=== PATIENT | male | born 1975 | race Caucasian/White ===

== ENCOUNTER → 2020-10-21 11:09 | Outpatient (BNVA) | payer OTHER, SELFPAY | PROVIDERS: Family Provider Family Medicine; PCP Family Medicine; Visit Provider Emergency Medicine | DX: Z20.822 Contact with and (suspected) exposure to COVID-19 (principal); R11.0 Nausea; R11.2 Nausea with vomiting, unspecified; E86.0 Dehydration | CPT/HCPCS: 87635 ==

== ENCOUNTER 2020-10-23 11:38 | Inpatient (IN) | payer OTHER, SELFPAY ==
[2020-10-23] VITALS (26 sets, daily range): BP systolic 124–145; BP diastolic 63–108; PULSE 65–80; RESP 16–29; TEMP 36.6–37.5; O2SAT 89–97
--- NOTE | 2020-10-23 13:54 | XR_ITS ---
WS: [id number] Portable AP upright chest, 10/23/2020 Clinical Data: sob Comparison: None. Findings: Patchy bilateral pulmonary opacities are consistent with pneumonia. The patient has a poor inspiratory effort. The heart is normal. No pneumothorax is seen. XR/XR chest 1V portable [id number] Impression: Patchy bilateral pulmonary opacities consistent with pneumonia.
--- NOTE | 2020-10-23 13:54 | ECG_ITS ---
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 Measurements Intervals [place] Rate: 77 P: 25 MS: 133 QRS: 105 QRSD: 100 T: 28 QT: 350 QTc: 397 Interpretive Statements SINUS RHYTHM POSSIBLE RIGHT VENTRICULAR HYPERTROPHY [SOME/ALL OF: PROMINENT R IN V1, LATE TRANSITION, RAD, HELEN, SSS] No previous ECG available for comparison Electronically Signed On 10-24-2020 20:34:06 CDT by Elba Frank M.D. [email or web address]
--- NOTE | 2020-10-23 13:55 | W.ED.COVID ---
Documented by User: SHEILA Dick 10/24/20 07:23 HPI - COVID General: Chief Complaint: COVID symptoms Stated Complaint: LOW O2 Time Seen by Provider: 10/23/20 13:47 History of Present Illness: HPI Narrative: Patient is a 45-year-old male comes to the ED with Covid symptoms. Patient has been having symptoms since October 11. He also had exposure to known Covid positive patient at that time. Patient is a fatigue, body aches, nausea and vomiting. Symptoms have improved and he went into the walk-in clinic this past Thursday and was given some IV fluids and Zofran and is fatigue, nausea and emesis improved. He was discharged home with a prescription for Zofran and says that has been helping his nausea a lot. He is also been taking Tylenol and ibuprofen to help with the body aches. Patient's current symptoms are productive cough with yellow sputum and shortness of breath. He says his shortness of breath occurs at rest and upon exertion. Patient was tested for COVID-19 on October 21 and results are still pending. Patient has not received the COVID-19 vaccinations. COVID 19 common symptoms: positive productive cough, dyspnea, fatigue and body aches; negative fever(s), chills, non-productive cough, headache(s), throat pain, nasal congestion, nausea, vomiting or diarrhea COVID 19 other sytmptoms: negative chest pain COVID Results: SARS-CoV-2 Antigen (Rapid) Positive (Negative) H 10/23/20 14:25 10/23/20 SARS-CoV-2 RNA (RT-PCR) Detected (NOT DETECTED) A 10/21/20 11:09 10/21/20 Review of Systems Const: Reports: body aches and fatigue; Denies: fever(s) or chills Eyes: Denies: change in vision or eye discomfort ENMT: Denies: throat pain, odynophagia, nasal discharge or nasal congestion Card: Denies: chest pain, palpitations, edema, swelling of feet/ankles, dyspnea on exertion or orthopnea Resp: Reports: dyspnea and productive cough; Denies: non-productive cough GI: Denies: abdominal pain, nausea, vomiting, diarrhea, constipation or hematochezia : Denies: flank pain, difficulty urinating, dysuria or hematuria Musc: Denies: neck pain, back pain or extremity swelling Skin/Breast: Denies: rash or new lesions Neuro: Denies: headache(s), numbness in extremities or weakness in extremities PFSH ED PFSH: Medical History No pertinent past medical history Surgical History No pertinent past surgical history Family History Mother CAD (coronary artery disease) Social History Smoking and tobacco status: never smoked Alcohol intake: never Substance/Drug Use: never Physical Exam Const: COMMON NORMALS: patient oriented x3, healthy appearing and alert GENERAL APPEARANCE: cooperative and comfortable HENMT: COMMON NORMALS: normocephalic HEAD & SCALP: normocephalic MOUTH: Normal oral and palatal mucosa present THROAT: posterior oropharynx normal and uvula midline Eye: COMMON NORMALS: Equal, round and reactive pupils present PUPIL: Yes Equal, round and reactive pupils present Neck/C-Spine: COMMON NORMALS: supple GENERAL: Yes normal visual inspection Resp: COMMON NORMALS: normal respiratory effort, No retractions and No use of accessory muscles EFFORT & INSPECTION: Yes able to speak in complete sentences, No tachypneic, No respiratory distress, No labored and Yes Actively coughing dry AUSCULTATION: wheezes expiratory wheezes and right lower and diminished lung sounds bilateral in the lower lung bernal Cardio: COMMON NORMALS: regular rate, regular rhythm, S1 normal heart sound present, S2 normal heart sound present, No gallops present (Cardio), No clicks present (Cardio), No murmurs present (Cardio) and Peripheral pulses 2+ throughout RATE: regular rate RHYTHM: regular rhythm HEART SOUNDS: S1 normal heart sound present and S2 normal heart sound present PERIPHERAL PULSES: Peripheral pulses 2+ throughout GI: COMMON NORMALS: Normal to inspection, nondistended, normoactive bowel sounds present, Soft to palpation, non-tender and no masses PALPATION: Yes Soft to palpation : COMMON NORMALS: Yes no CVA tenderness BLADDER/KIDNEY EXAM: Yes no CVA tenderness Back/Pelvis: COMMON NORMALS: no CVA tenderness Extremity: COMMON NORMALS: normal to inspection Neuro: COMMON NORMALS: patient oriented x3 and moves all extremities SENSORIUM/ORIENTATION: Yes alert Skin: GENERAL SKIN EXAM: dry skin Course Vital Signs: Vital signs: Vital Signs Temperature 98.9 F 10/24/20 20:00 Pulse Rate 51 L 10/25/20 06:00 Respiratory Rate 20 H 10/25/20 03:43 Blood Pressure 107/62 10/25/20 03:43 Pulse Oximetry 94 10/25/20 03:43 MDM - COVID MDM Narrative: Medical decision making narrative: Patient is a 45-year-old male who comes to the ED with shortness of breath and cough. Patient has no lung disease history. patient was exposed to somebody with COVID-19 and his symptoms started back on October 11. He is having worsening cough and shortness of breath over the past couple days. Here in the ED patient appears nontoxic and in no acute distress. He is actively coughing throughout exam. Patient's right lung has some wheezing and decreased breath sounds. The rest of exam is benign. Patient was at 91% O2 saturation on room air. He was then put on 4 L of oxygen and patient ran around 92 to 94% O2 saturation. The rest of vitals were in normal limits. Covid rapid test positive. Patient had a pending PCR test that just came back positive as well today. Patient had lymphocytopenia but rest of CBC and CMP were unremarkable. Arterial blood gas done and pO2 was at 58.7 and pH was 7.43. Lactic acid 1.3. CRP 97.8 and procal 0.24. Chest x-ray shows patchy bilateral pulmonary opacities consistent with pneumonia. Due to patient requiring 4 L of oxygen currently, ABG results chest x-ray I spoke with Dr. Carpenter about patient case and needing admission. Dr. Carpenter then took over patient case due to acuity and pt needing admission. Lab Data: Labs: Lab Results 10/23/20 10/23/20 10/23/20 Range/Units 14:20 14:25 14:30 WBC 2.5 L (4.0-10.0) 10^3/ uL RBC 5.32 H (4.1-5.3) 10^6/u L Hgb 14.2 (11.7-16.6) g/dL Hct 44.8 (42.0-52.0) % MCV 84.2 (80-94) fL MCH 26.7 L (28.0-34.0) pg MCHC 31.7 (30.0-36.0) g/dL RDW 14.0 (12.1-15.1) % Plt Count 128 L (130-400) 10^3/c mm MPV 9.4 (7.4-10.4) fL Neut % (Auto) 72.0 % Lymph % (Auto) 22.8 % Crowley % (Auto) 4.4 % Eos % (Auto) 0.0 % Baso % (Auto) 0.4 % Neut # (Auto) 1.80 (1.8-7.7) 10^3/u L Lymph # (Auto) 0.6 L (0.8-4.8) 10^3/u L Crowley # (Auto) 0.1 L (0.2-0.9) 10^3/u L Eos # (Auto) 0.0 (0.0-0.8) 10^3/u L Baso # (Auto) 0.0 (0.0-0.1) 10^3/u L Nucleated RBC % (a uto) 0 % Nucleated RBCs # 0.0 /100WBC D-Dimer (0-0.59) ug/mIFE U Specimen Type Arterial ABG pH 7.43 (7.35-7.45) ABG pCO2 41.3 (35-45) mmHg ABG pO2 58.7 L (80.0-100.0) mmH g ABG HCO3 27.2 H (22-26) mmol/L ABG O2 Saturation 92.9 ABG Base Excess 2.5 H (-2.0-2.0) mmol/ L Blake Test Pos A-a O2 Gradient 5.2 (5-10) mmHg Hematocrit 45.0 (42-52) % Hgb O2 Saturation 92.0 L (95-100) % Carboxyhemoglobin 0.7 (0.4-20.1) %THgb Methemoglobin 0.3 L (0.4-1.5) % Total Hemoglobin 14.7 (14-18) g/dL Sodium 138.0 (131-143) mmol/L Potassium 4.1 (3.5-5.0) mmol/L Glucose 99.0 (70-115) mg/dL Ionized Calcium 1.1 (1.1-1.4) mmol/L O2 Delivery Device Training Program Assistant ID Cass Chloride (98-107) mmol/L Carbon Dioxide (22-29) mmol/L Anion Gap (5-19) BUN (6-20) mg/dL Creatinine (0.7-1.2) mg/dL GFR Calculation (90-130) mL/min Calculated Osmolal ity (285-295) mOsm/k g Lactic Acid (0.5-2.2) mmol/L Calcium (8.5-10.5) mg/dL Total Bilirubin (0.15-1.2) mg/dL AST (0-40) U/L ALT (0-41) U/L Alkaline Phosphata se (40-130) IU/L C-Reactive Protein (0.0-4.9) mg/L Total Protein (6.6-8.7) g/dL Albumin (3.5-5.2) g/dL Globulin (1.3-4.6) g/dL Procalcitonin (0-0.5) ng/mL SARS-CoV-2 Ag (Rap id) Positive H (Negative) 10/23/20 10/23/20 10/23/20 Range/Units 14:30 14:30 14:30 WBC (4.0-10.0) 10^3/ uL RBC (4.1-5.3) 10^6/u L Hgb (11.7-16.6) g/dL Hct (42.0-52.0) % MCV (80-94) fL MCH (28.0-34.0) pg MCHC (30.0-36.0) g/dL RDW (12.1-15.1) % Plt Count (130-400) 10^3/c mm MPV (7.4-10.4) fL Neut % (Auto) % Lymph % (Auto) % Crowley % (Auto) % Eos % (Auto) % Baso % (Auto) % Neut # (Auto) (1.8-7.7) 10^3/u L Lymph # (Auto) (0.8-4.8) 10^3/u L Crowley # (Auto) (0.2-0.9) 10^3/u L Eos # (Auto) (0.0-0.8) 10^3/u L Baso # (Auto) (0.0-0.1) 10^3/u L Nucleated RBC % (a uto) % Nucleated RBCs # /100WBC D-Dimer 0.98 H (0-0.59) ug/mIFE U Specimen Type ABG pH (7.35-7.45) ABG pCO2 (35-45) mmHg ABG pO2 (80.0-100.0) mmH g ABG HCO3 (22-26) mmol/L ABG O2 Saturation ABG Base Excess (-2.0-2.0) mmol/ L Blake Test A-a O2 Gradient (5-10) mmHg Hematocrit (42-52) % Hgb O2 Saturation (95-100) % Carboxyhemoglobin (0.4-20.1) %THgb Methemoglobin (0.4-1.5) % Total Hemoglobin (14-18) g/dL Sodium 135 L (131-143) mmol/L Potassium 4.2 (3.5-5.0) mmol/L Glucose 94 (70-115) mg/dL Ionized Calcium (1.1-1.4) mmol/L O2 Delivery Device Training Program Assistant ID Chloride 97 L (98-107) mmol/L Carbon Dioxide 28 (22-29) mmol/L Anion Gap 14.2 (5-19) BUN 12 (6-20) mg/dL Creatinine 0.9 (0.7-1.2) mg/dL GFR Calculation 92.1 (90-130) mL/min Calculated Osmolal ity 280 L (285-295) mOsm/k g Lactic Acid (0.5-2.2) mmol/L Calcium 7.7 L (8.5-10.5) mg/dL Total Bilirubin 0.5 (0.15-1.2) mg/dL AST 163 H (0-40) U/L ALT 180 H (0-41) U/L Alkaline Phosphata se 185 H (40-130) IU/L C-Reactive Protein 97.8 H (0.0-4.9) mg/L Total Protein 6.0 L (6.6-8.7) g/dL Albumin 4.0 (3.5-5.2) g/dL Globulin 2.0 (1.3-4.6) g/dL Procalcitonin 0.24 (0-0.5) ng/mL SARS-CoV-2 Ag (Rap id) (Negative) 10/23/20 Range/Units 14:30 WBC (4.0-10.0) 10^3/ uL RBC (4.1-5.3) 10^6/u L Hgb (11.7-16.6) g/dL Hct (42.0-52.0) % MCV (80-94) fL MCH (28.0-34.0) pg MCHC (30.0-36.0) g/dL RDW (12.1-15.1) % Plt Count (130-400) 10^3/c mm MPV (7.4-10.4) fL Neut % (Auto) % Lymph % (Auto) % Crowley % (Auto) % Eos % (Auto) % Baso % (Auto) % Neut # (Auto) (1.8-7.7) 10^3/u L Lymph # (Auto) (0.8-4.8) 10^3/u L Crowley # (Auto) (0.2-0.9) 10^3/u L Eos # (Auto) (0.0-0.8) 10^3/u L Baso # (Auto) (0.0-0.1) 10^3/u L Nucleated RBC % (a uto) % Nucleated RBCs # /100WBC D-Dimer (0-0.59) ug/mIFE U Specimen Type ABG pH (7.35-7.45) ABG pCO2 (35-45) mmHg ABG pO2 (80.0-100.0) mmH g ABG HCO3 (22-26) mmol/L ABG O2 Saturation ABG Base Excess (-2.0-2.0) mmol/ L Blake Test A-a O2 Gradient (5-10) mmHg Hematocrit (42-52) % Hgb O2 Saturation (95-100) % Carboxyhemoglobin (0.4-20.1) %THgb Methemoglobin (0.4-1.5) % Total Hemoglobin (14-18) g/dL Sodium (131-143) mmol/L Potassium (3.5-5.0) mmol/L Glucose (70-115) mg/dL Ionized Calcium (1.1-1.4) mmol/L O2 Delivery Device Training Program Assistant ID Chloride (98-107) mmol/L Carbon Dioxide (22-29) mmol/L Anion Gap (5-19) BUN (6-20) mg/dL Creatinine (0.7-1.2) mg/dL GFR Calculation (90-130) mL/min Calculated Osmolal ity (285-295) mOsm/k g Lactic Acid 1.3 (0.5-2.2) mmol/L Calcium (8.5-10.5) mg/dL Total Bilirubin (0.15-1.2) mg/dL AST (0-40) U/L ALT (0-41) U/L Alkaline Phosphata se (40-130) IU/L C-Reactive Protein (0.0-4.9) mg/L Total Protein (6.6-8.7) g/dL Albumin (3.5-5.2) g/dL Globulin (1.3-4.6) g/dL Procalcitonin (0-0.5) ng/mL SARS-CoV-2 Ag (Rap id) (Negative) Imaging Data: CXR: Attestation: I personally reviewed and interpreted this imaging study as follows: Radiologist's impression: [address] [address] XRay Report Signed Patient: Cali Sofia Unit #: [id number] : 1975 Age/Sex: 45 / M ADM Date: 10/23/20 Loc: ER Room/Bed: Attending Dr: Ordering Provider/Ordering MD: Albin Arreaga Date of Service: 10/23/20 Procedure(s): XR chest 1V portable [id number] Accession Number(s): [id number] Report Number: [id number] WS: [id number] Portable AP upright chest, 10/23/2020 Clinical Data: sob Comparison: None. Findings: Patchy bilateral pulmonary opacities are consistent with pneumonia. The patient has a poor inspiratory effort. The heart is normal. No pneumothorax is seen. XR/XR chest 1V portable [id number] Impression: Patchy bilateral pulmonary opacities consistent with pneumonia. Dictated By: Carmen Varghese MD Signed By: Carmen Varghese MD Signed Date/Time: 10/23/20 1421 DD/ 1420 EKG Data: EKG 1: Attestation: I personally reviewed and interpreted this EKG as follows: EKG interpretation date: 10/23/20 Interpretation: Sinus rhythm, 77 bpm, no ST segment elevation or depression seen. COVID Results: SARS-CoV-2 Antigen (Rapid) Positive (Negative) H 10/23/20 14:25 10/23/20 SARS-CoV-2 RNA (RT-PCR) Detected (NOT DETECTED) A 10/21/20 11:09 10/21/20 Discharge Plan Discharge Patient Disposition: Admitted As Inpatient Admit Provider: Odilon Mathias Clinical Impression: COVID-19 Condition: Stable Sign Out Sign Out Data: Patient Sign Out occurred on 10/23/20 at 16:03. Patient's care was discussed, and care was transferred from to Jose Carpenter DO. Coding Level of Care Code ED Bullet Lubricant Mixer for Chg Fwd Exam Comprehensive Documented by User: Jose Carpenter DO 10/25/20 07:08 HPI - COVID General: Chief Complaint: COVID symptoms Stated Complaint: LOW O2 Time Seen by Provider: 10/23/20 13:47 COVID Results: SARS-CoV-2 Antigen (Rapid) Positive (Negative) H 10/23/20 14:25 10/23/20 SARS-CoV-2 RNA (RT-PCR) Detected (NOT DETECTED) A 10/21/20 11:09 10/21/20 [facility] ED PFSH: Medical History No pertinent past medical history Surgical History No pertinent past surgical history Family History Mother CAD (coronary artery disease) Social History Smoking and tobacco status: never smoked Alcohol intake: never Substance/Drug Use: never Course Vital Signs: Vital signs: Vital Signs Temperature 98.9 F 10/24/20 20:00 Pulse Rate 51 L 10/25/20 06:00 Respiratory Rate 20 H 10/25/20 03:43 Blood Pressure 107/62 10/25/20 03:43 Pulse Oximetry 94 10/25/20 03:43 MDM - COVID MDM Narrative: Medical decision making narrative: Reviewed case with SHEILA Dick. Agree with assessment and plan admission. Examined patient his course of breath sounds patient has Covid-like pneumonitis infiltrates on chest x-ray will require admission for support start remdesivir and steroids. Lab Data: Labs: Lab Results 10/23/20 10/23/20 10/23/20 Range/Units 14:20 14:25 14:30 WBC 2.5 L (4.0-10.0) 10^3/ uL RBC 5.32 H (4.1-5.3) 10^6/u L Hgb 14.2 (11.7-16.6) g/dL Hct 44.8 (42.0-52.0) % MCV 84.2 (80-94) fL MCH 26.7 L (28.0-34.0) pg MCHC 31.7 (30.0-36.0) g/dL RDW 14.0 (12.1-15.1) % Plt Count 128 L (130-400) 10^3/c mm MPV 9.4 (7.4-10.4) fL Neut % (Auto) 72.0 % Lymph % (Auto) 22.8 % Crowley % (Auto) 4.4 % Eos % (Auto) 0.0 % Baso % (Auto) 0.4 % Neut # (Auto) 1.80 (1.8-7.7) 10^3/u L Lymph # (Auto) 0.6 L (0.8-4.8) 10^3/u L Crowley # (Auto) 0.1 L (0.2-0.9) 10^3/u L Eos # (Auto) 0.0 (0.0-0.8) 10^3/u L Baso # (Auto) 0.0 (0.0-0.1) 10^3/u L Nucleated RBC % (a uto) 0 % Nucleated RBCs # 0.0 /100WBC D-Dimer (0-0.59) ug/mIFE U Specimen Type Arterial ABG pH 7.43 (7.35-7.45) ABG pCO2 41.3 (35-45) mmHg ABG pO2 58.7 L (80.0-100.0) mmH g ABG HCO3 27.2 H (22-26) mmol/L ABG O2 Saturation 92.9 ABG Base Excess 2.5 H (-2.0-2.0) mmol/ L Blake Test Pos A-a O2 Gradient 5.2 (5-10) mmHg Hematocrit 45.0 (42-52) % Hgb O2 Saturation 92.0 L (95-100) % Carboxyhemoglobin 0.7 (0.4-20.1) %THgb Methemoglobin 0.3 L (0.4-1.5) % Total Hemoglobin 14.7 (14-18) g/dL Sodium 138.0 (131-143) mmol/L Potassium 4.1 (3.5-5.0) mmol/L Glucose 99.0 (70-115) mg/dL Ionized Calcium 1.1 (1.1-1.4) mmol/L O2 Delivery Device Training Program Assistant ID Cass Chloride (98-107) mmol/L Carbon Dioxide (22-29) mmol/L Anion Gap (5-19) BUN (6-20) mg/dL Creatinine (0.7-1.2) mg/dL GFR Calculation (90-130) mL/min Calculated Osmolal ity (285-295) mOsm/k g Lactic Acid (0.5-2.2) mmol/L Calcium (8.5-10.5) mg/dL Total Bilirubin (0.15-1.2) mg/dL AST (0-40) U/L ALT (0-41) U/L Alkaline Phosphata se (40-130) IU/L C-Reactive Protein (0.0-4.9) mg/L Total Protein (6.6-8.7) g/dL Albumin (3.5-5.2) g/dL Globulin (1.3-4.6) g/dL Procalcitonin (0-0.5) ng/mL SARS-CoV-2 Ag (Rap id) Positive H (Negative) 10/23/20 10/23/20 10/23/20 Range/Units 14:30 14:30 14:30 WBC (4.0-10.0) 10^3/ uL RBC (4.1-5.3) 10^6/u L Hgb (11.7-16.6) g/dL Hct (42.0-52.0) % MCV (80-94) fL MCH (28.0-34.0) pg MCHC (30.0-36.0) g/dL RDW (12.1-15.1) % Plt Count (130-400) 10^3/c mm MPV (7.4-10.4) fL Neut % (Auto) % Lymph % (Auto) % Crowley % (Auto) % Eos % (Auto) % Baso % (Auto) % Neut # (Auto) (1.8-7.7) 10^3/u L Lymph # (Auto) (0.8-4.8) 10^3/u L Crowley # (Auto) (0.2-0.9) 10^3/u L Eos # (Auto) (0.0-0.8) 10^3/u L Baso # (Auto) (0.0-0.1) 10^3/u L Nucleated RBC % (a uto) % Nucleated RBCs # /100WBC D-Dimer 0.98 H (0-0.59) ug/mIFE U Specimen Type ABG pH (7.35-7.45) ABG pCO2 (35-45) mmHg ABG pO2 (80.0-100.0) mmH g ABG HCO3 (22-26) mmol/L ABG O2 Saturation ABG Base Excess (-2.0-2.0) mmol/ L Blake Test A-a O2 Gradient (5-10) mmHg Hematocrit (42-52) % Hgb O2 Saturation (95-100) % Carboxyhemoglobin (0.4-20.1) %THgb Methemoglobin (0.4-1.5) % Total Hemoglobin (14-18) g/dL Sodium 135 L (131-143) mmol/L Potassium 4.2 (3.5-5.0) mmol/L Glucose 94 (70-115) mg/dL Ionized Calcium (1.1-1.4) mmol/L O2 Delivery Device Training Program Assistant ID Chloride 97 L (98-107) mmol/L Carbon Dioxide 28 (22-29) mmol/L Anion Gap 14.2 (5-19) BUN 12 (6-20) mg/dL Creatinine 0.9 (0.7-1.2) mg/dL GFR Calculation 92.1 (90-130) mL/min Calculated Osmolal ity 280 L (285-295) mOsm/k g Lactic Acid (0.5-2.2) mmol/L Calcium 7.7 L (8.5-10.5) mg/dL Total Bilirubin 0.5 (0.15-1.2) mg/dL AST 163 H (0-40) U/L ALT 180 H (0-41) U/L Alkaline Phosphata se 185 H (40-130) IU/L C-Reactive Protein 97.8 H (0.0-4.9) mg/L Total Protein 6.0 L (6.6-8.7) g/dL Albumin 4.0 (3.5-5.2) g/dL Globulin 2.0 (1.3-4.6) g/dL Procalcitonin 0.24 (0-0.5) ng/mL SARS-CoV-2 Ag (Rap id) (Negative) 10/23/20 Range/Units 14:30 WBC (4.0-10.0) 10^3/ uL RBC (4.1-5.3) 10^6/u L Hgb (11.7-16.6) g/dL Hct (42.0-52.0) % MCV (80-94) fL MCH (28.0-34.0) pg MCHC (30.0-36.0) g/dL RDW (12.1-15.1) % Plt Count (130-400) 10^3/c mm MPV (7.4-10.4) fL Neut % (Auto) % Lymph % (Auto) % Crowley % (Auto) % Eos % (Auto) % Baso % (Auto) % Neut # (Auto) (1.8-7.7) 10^3/u L Lymph # (Auto) (0.8-4.8) 10^3/u L Crowley # (Auto) (0.2-0.9) 10^3/u L Eos # (Auto) (0.0-0.8) 10^3/u L Baso # (Auto) (0.0-0.1) 10^3/u L Nucleated RBC % (a uto) % Nucleated RBCs # /100WBC D-Dimer (0-0.59) ug/mIFE U Specimen Type ABG pH (7.35-7.45) ABG pCO2 (35-45) mmHg ABG pO2 (80.0-100.0) mmH g ABG HCO3 (22-26) mmol/L ABG O2 Saturation ABG Base Excess (-2.0-2.0) mmol/ L Blake Test A-a O2 Gradient (5-10) mmHg Hematocrit (42-52) % Hgb O2 Saturation (95-100) % Carboxyhemoglobin (0.4-20.1) %THgb Methemoglobin (0.4-1.5) % Total Hemoglobin (14-18) g/dL Sodium (131-143) mmol/L Potassium (3.5-5.0) mmol/L Glucose (70-115) mg/dL Ionized Calcium (1.1-1.4) mmol/L O2 Delivery Device Training Program Assistant ID Chloride (98-107) mmol/L Carbon Dioxide (22-29) mmol/L Anion Gap (5-19) BUN (6-20) mg/dL Creatinine (0.7-1.2) mg/dL GFR Calculation (90-130) mL/min Calculated Osmolal ity (285-295) mOsm/k g Lactic Acid 1.3 (0.5-2.2) mmol/L Calcium (8.5-10.5) mg/dL Total Bilirubin (0.15-1.2) mg/dL AST (0-40) U/L ALT (0-41) U/L Alkaline Phosphata se (40-130) IU/L C-Reactive Protein (0.0-4.9) mg/L Total Protein (6.6-8.7) g/dL Albumin (3.5-5.2) g/dL Globulin (1.3-4.6) g/dL Procalcitonin (0-0.5) ng/mL SARS-CoV-2 Ag (Rap id) (Negative) COVID Results: SARS-CoV-2 Antigen (Rapid) Positive (Negative) H 10/23/20 14:25 10/23/20 SARS-CoV-2 RNA (RT-PCR) Detected (NOT DETECTED) A 10/21/20 11:09 10/21/20 Discharge Plan Discharge Patient Disposition: Admitted As Inpatient Admit Provider: Odilon Mathias Clinical Impression: COVID-19 Condition: Stable Sign Out Sign Out Data: Patient Sign Out occurred on 10/23/20 at 16:03. Patient's care was discussed, and care was transferred from to Jose Carpenter DO. Coding Level of Care Code ED Bullet Lubricant Mixer for Jr Fwd Exam Comprehensive
[2020-10-23 14:34] LABS: ABG PCO2 41.3 mmHg (35-45); ABG PH Result 7.43 (7.35-7.45); Alveolar-Arterial Oxygen Gradi 5.2 mmHg (5-10); Base Excess ABG 2.5 mmol/L (-2.0-2.0); Blood Gas Allen Test Pos; Blood Gas Sample Type Arterial; Carboxyhemoglobin 0.7 %THgb (0.4-20.1); HCO3 ABG 27.2 mmol/L (22-26); Ionized Calcium Level - ABG 1.1 mmol/L (1.1-1.4); Methemoglobin 0.3 % (0.4-1.5); Oxygen Saturation ABG 92.9; PO2 ABG 58.7 mmHg (80.0-100.0); Potassium Level - ABG 4.1 mmol/L (3.5-5.0); Total Hemoglobin 14.7 g/dL (14-18)
[2020-10-23] MEDS: dexamethasone 10 mg/mL INJ IVP (14:45)
[2020-10-23] MEDS: albuterol 8 gm MDI 2 PUFF INHALATION (14:47)
[2020-10-23 14:50] LABS: Basophils % 0.4 %; Hematocrit 44.8 % (42.0-52.0); Hemoglobin 14.2 g/dL (11.7-16.6); Lymphocytes # 0.6 10^3/uL (0.8-4.8); Lymphocytes % 22.8 %; Mean Corpuscular HGB Conc 31.7 g/dL (30.0-36.0); Mean Corpuscular Hemoglobin 26.7 pg (28.0-34.0); Mean Corpuscular Volume 84.2 fL (80-94); Mean Platelet Volume 9.4 fL (7.4-10.4); Monocytes # 0.1 10^3/uL (0.2-0.9); Monocytes % 4.4 %; Nucleated Red Blood Cells % 0 %; Platelet Count 128 10^3/cmm (130-400); Red Blood Count 5.32 10^6/uL (4.1-5.3); White Blood Count 2.5 10^3/uL (4.0-10.0)
[2020-10-23 15:05] LABS: Alanine Aminotransferase 180 U/L (0-41); Alkaline Phosphatase 185 IU/L (40-130); Anion Gap 14.2 (5-19); Aspartate Amino Transferase 163 U/L (0-40); Blood Urea Nitrogen 12 mg/dL (6-20); Calcium 7.7 mg/dL (8.5-10.5); Carbon Dioxide 28 mmol/L (22-29); Chloride 97 mmol/L (98-107); Glomerular Filtration Rate 92.1 mL/min (90-130); Glucose 94 mg/dL (65-115); Osmolality Calculated 280 mOsm/kg (285-295); Potassium 4.2 mmol/L (3.5-5.1); Sodium 135 mmol/L (136-145); Total Bilirubin 0.5 mg/dL (0.15-1.2)
[2020-10-23 15:12] LABS: SARS Covid-2 Antigen Positive (Negative)
--- NOTE | 2020-10-23 15:24 | PC.PHAR ---
PT STATES HE TAKES CARE OF HIS OWN MEDICATIONS-PT STATES HE WAS TAKING SOME VITAMIN C BUT HASNT TAKE FOR ABOUT 2 WEEKS-PT STATES HE DOESNT TAKE RX MEDICATIONS-PT STATES HE JUST GOT A RX FOR THE ZOFRAN
[2020-10-23 15:36] LABS: Lactic Sepsis W/Reflex 1.3 mmol/L (0.5-2.2)
[2020-10-23 15:37] LABS: C Reactive Protein 97.8 mg/L (0.0-4.9)
[2020-10-23] MEDS: remdesivir 200 MG in sodium chloride 0.9% (100 ml) 100 ML 100 MG IV (15:44)
[2020-10-23 15:45] LABS: Procalcitonin 0.24 ng/mL (0-0.5)
[2020-10-23 15:51] LABS: D Dimer 0.98 ug/mIFEU (0-0.59)
--- NOTE | 2020-10-23 17:32 | PM.HP ---
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 Patient tells me roughly 2 weeks ago on , one of his workers child tested positive for Covid, and he was also symptomatic, since then he started to develop nausea, vomiting, fatigue, malaise. His symptoms progressed such that this last Thursday he felt dehydrated so he went to his primary care physician's office, received IV hydration and tested positive for Covid. He says that his symptoms persisted after the IV hydration, but started developing high-grade fevers, nonproductive cough, and shortness of breath at rest with exertion. He has not received the Covid vaccines, no cardiovascular history, no history of smoking, no history asthma COPD, no recent travel, does work construction, has exposure to silica but wears appropriate equipment Review of Systems Const: Reports: fever(s), chills, body aches, fatigue and malaise Eyes: Denies: change in vision or blurry vision ENMT: Denies: nasal congestion Card: Denies: chest pain or palpitations Resp: Reports: dyspnea and non-productive cough; Denies: productive cough or wheezing GI: Reports: nausea; Denies: abdominal pain, vomiting, hematemesis, diarrhea, constipation, hematochezia or melena : Denies: flank pain, difficulty urinating, dysuria or urinary frequency Musc: Denies: neck pain or back pain Skin/Breast: Denies: rash Neuro: Denies: headache(s), dizziness or vertigo Psych: Denies: anxiety or depression Endo: Denies: polyuria or polydipsia Medications/Allergies Home Medications Medication Instructions Recorded Confirmed Last Taken Type acetaminophen 500 mg tablet 1,500 mg PO PRN 10/21/20 10/23/20 Unknown History ondansetron 4 mg disintegrating 4 mg PO Q6H PRN #12 tab 10/21/20 10/23/20 10/22/20 Rx tablet ibuprofen 600 mg PO PRN 10/23/20 10/23/20 Unknown History Allergies Allergy/AdvReac Type Severity Reaction Status Date / Time No Known Allergies Allergy Verified 10/23/20 15:25 PFSH Acute PFSH: Medical History (Updated 10/23/20 @ 17:38 by Odilon Mathias MD) No pertinent past medical history Surgical History (Updated 10/23/20 @ 17:36 by Odilon Mathias MD) No pertinent past surgical history Family History (Updated 10/23/20 @ 17:36 by Odilon Mathias MD) Mother CAD (coronary artery disease) Social History (Updated 10/23/20 @ 17:36 by Odilon Mathias MD) Smoking and tobacco status: never smoked Alcohol intake: never Substance/Drug Use: never Vitals/I&O/Wt Last Vital Signs Temp 99.5 F 10/23/20 12:07 Pulse 78 10/23/20 17:03 Resp 18 10/23/20 17:03 BP 137/71 10/23/20 17:03 Pulse Ox 95 10/23/20 17:03 10/23/20 10/23/20 10/23/20 06:59 14:59 22:59 Intake Total 100 / 100 Balance 100 / 100 Physical Exam Const: COMMON NORMALS: no acute distress and patient oriented x3 GENERAL APPEARANCE: cooperative and comfortable HENMT: COMMON NORMALS: normocephalic HEAD & SCALP: normocephalic Eye: COMMON NORMALS: Equal, round and reactive pupils present and EOMs intact bilaterally GENERAL EYE: appearance normal, both eyes and all related structures PUPIL: Yes Equal, round and reactive pupils present Neck/C-Spine: COMMON NORMALS: full ROM and no JVD THYROID: Thyroid normal Lymph: LYMPHATIC: no lymphadenopathy noted Resp: COMMON NORMALS: normal respiratory effort, No retractions and No use of accessory muscles AUSCULTATION: diminished lung sounds diffuse Cardio: COMMON NORMALS: no JVD, regular rate, regular rhythm, S1 normal heart sound present, S2 normal heart sound present, No gallops present (Cardio), No clicks present (Cardio) and No murmurs present (Cardio) RATE: regular rate RHYTHM: regular rhythm HEART SOUNDS: S1 normal heart sound present and S2 normal heart sound present GI: COMMON NORMALS: Normal to inspection, nondistended, normoactive bowel sounds present, Soft to palpation, non-tender and No hepatosplenomegaly present PALPATION: Yes Soft to palpation and Yes No hepatosplenomegaly present Extremity: COMMON NORMALS: normal to inspection, full ROM and no pedal edema Neuro: COMMON NORMALS: patient oriented x3, CN's II-XII intact bilaterally, moves all extremities and no focal motor deficits Psych: COMMON NORMALS: mental status grossly normal, Normal thought process present and cooperative THOUGHT PROCESS: Normal thought process present Data : 10/23/20 14:30 10/23/20 14:30 A&P Assessment and plan (1) Pneumonia due to COVID-19 virus: -With hypoxia requiring 2 L -Lymphopenia -Thrombocytopenia -Transaminitis -Hyponatremia Plan: -Admit to general medical floors under COVID-19 precautions -Perform CT angiogram of the chest -Decadron 6 mg IV daily -Remdesivir day 1 of 5 -Broad-spectrum antibiotic therapy Rocephin and azithromycin -Blood cultures, sputum cultures, urine bacterial antigens -Vitamin C zinc, vitamin D - aggressive pulmonary toilet, incentive spirometer, flutter valve, prone positioning -Lovenox for DVT prophylaxis -Full code Status: Acute (2) Hypoxia: Status: Acute (3) Lymphopenia associated with COVID-19: Status: Acute (4) Transaminitis: Status: Acute (5) Hyponatremia: Status: Acute Attestations Medical Necessity Statement*: Patient requires hospitalization, inpatient, greater than 2 midnights due to severe COVID-19 pneumonia, hypoxia, transaminitis, lymphopenia, hyponatremia, thrombocytopenia Coding Level of Care Code Acute Telehealth Coordinator for [facility] Diagnoses Pneumonia due to COVID-19 virus U07.1; J12.82 Hypoxia R09.02 Lymphopenia associated with COVID-19 U07.1; D72.810 Transaminitis R74.01 Hyponatremia E87.1
[2020-10-23 18:45] LABS: Basophils % 0.3 %; Hematocrit 44.5 % (42.0-52.0); Lymphocytes # 0.4 10^3/uL (0.8-4.8); Mean Corpuscular HGB Conc 31.5 g/dL (30.0-36.0); Mean Corpuscular Hemoglobin 26.9 pg (28.0-34.0); Mean Corpuscular Volume 85.4 fL (80-94); Mean Platelet Volume 9.4 fL (7.4-10.4); Monocytes # 0.1 10^3/uL (0.2-0.9); Monocytes % 2.8 %; Neutrophils # 2.32 10^3/uL (1.8-7.7); Neutrophils % 81.2 %; Nucleated Red Blood Cells % 0 %; Platelet Count 127 10^3/cmm (130-400); Red Blood Count 5.21 10^6/uL (4.1-5.3); Red Cell Distribution Width 13.8 % (12.1-15.1); White Blood Count 2.9 10^3/uL (4.0-10.0)
[2020-10-23 19:23] LABS: Alanine Aminotransferase 183 U/L (0-41); Albumin Level 3.6 g/dL (3.5-5.2); Alkaline Phosphatase 182 IU/L (40-130); Anion Gap 16.1 (5-19); Aspartate Amino Transferase 173 U/L (0-40); Blood Urea Nitrogen 13 mg/dL (6-20); Calcium 7.8 mg/dL (8.5-10.5); Carbon Dioxide 26 mmol/L (22-29); Chloride 99 mmol/L (98-107); Globulin 2.8 g/dL (1.3-4.6); Glomerular Filtration Rate 92.1 mL/min (90-130); Glucose 104 mg/dL (65-115); NT Pro B Type Natriuretic Pept 41 pg/mL (0-125); Osmolality Calculated 284 mOsm/kg (285-295); Potassium 4.1 mmol/L (3.5-5.1); Sodium 137 mmol/L (136-145); Total Bilirubin 0.5 mg/dL (0.15-1.2); Total Protein 6.4 g/dL (6.6-8.7)
[2020-10-23 19:31] LABS: Creatine Phosphokinase 469 U/L (39-308)
--- NOTE | 2020-10-23 20:59 | PC.NURSE ---
report to Nayeli DAVIS
[2020-10-23] MEDS: ascorbic acid 500 mg Tablet PO (23:14)
[2020-10-23] MEDS: azithromycin 500 MG in sodium chloride 0.9% 250 ML 250 MG IV (23:15)
[2020-10-23] MEDS: enoxaparin 40 mg/0.4 mL Syringe SUBCUT (23:16)
[2020-10-23] MEDS: famotidine 20 mg Tablet PO (23:16)
[2020-10-24] VITALS (23 sets, daily range): BP systolic 108–169; BP diastolic 47–85; PULSE 54–78; RESP 17–25; TEMP 36.7–37.8; O2SAT 90–96
[2020-10-24] MEDS: cefTRIAXone 1,000 MG in sodium chloride 0.9% (plus) 50 ML 100 MG IV (00:59)
--- NOTE | 2020-10-24 01:14 | PC.NURSE ---
Patient arrived on unit to room 202-1 from ER dept. Patient on 4LPM Oxygen via nasal cannula. Nil distress noted. A+O X4. [place] saline locked to Rt. FA. Patient ambulant and self caring. Call freeman in close reach. Observation ongoing.
--- NOTE | 2020-10-24 01:16 | PC.NURSE ---
Patient for CT chest, was taken down to CT dept, but no one was present there to do test. Patient was taken back to room in bed.
--- NOTE | 2020-10-24 01:18 | PC.NURSE ---
Patient was transported to floor from ER dept at 2240 by Sandra James RN
--- NOTE | 2020-10-24 07:17 | PC.NURSE ---
Patient spent an uneventful shift last pm. On 4LPM Oxygen via Nasal cannula. Nil distress noted. Patient for CT chest. Labs taken this am. Patient ambulant and self caring. Observation continues.
[2020-10-24 07:39] LABS: Hematocrit 43.5 % (42.0-52.0); Hemoglobin 13.7 g/dL (11.7-16.6); Lymphocytes # 0.8 10^3/uL (0.8-4.8); Lymphocytes % 27.5 %; Mean Corpuscular HGB Conc 31.5 g/dL (30.0-36.0); Mean Corpuscular Hemoglobin 26.9 pg (28.0-34.0); Mean Corpuscular Volume 85.3 fL (80-94); Mean Platelet Volume 9.9 fL (7.4-10.4); Monocytes # 0.2 10^3/uL (0.2-0.9); Monocytes % 6.8 %; Neutrophils # 1.91 10^3/uL (1.8-7.7); Neutrophils % 64.7 %; Nucleated Red Blood Cells % 0 %; Platelet Count 149 10^3/cmm (130-400); Red Cell Distribution Width 13.8 % (12.1-15.1)
[2020-10-24 07:52] LABS: D Dimer 0.93 ug/mIFEU (0-0.59)
--- NOTE | 2020-10-24 08:00 | CT_ITS ---
WS: [id number] CT CHEST ANGIOGRAPHY WITH REFORMATS HISTORY: shortness of breath TECHNIQUE: Contiguous axial images are obtained through the chest during arterial injection of intrav enous contrast. Images are reconstructed to evaluate the pulmonary arteries. MIP imaging also reviewe d. All CT scans at [facility] use at least one of these dose optimization techniques: aut omated exposure control; mA and/or kV adjustment per patient size (includes targeted exams where dose is matched to clinical indication); or iterative reconstruction. CONTRAST: Omnipaque 350; 95 mL IV. DLP: 479.72 mGy.cm COMPARISON: None available. Adequate opacification of the central pulmonary arteries. No filling defects or pulmonary emboli note d through the main pulmonary artery and portions of the segmental branches. There is artifact extendi ng through the pulmonary arteries involving portions of the segmental branches. Pulmonary artery is s lightly dilated. Normal thoracic aorta. No aneurysm. Decreased lung volumes. Bilateral, multilobar areas of groundglass attenuation and focal opacificatio ns. Opacifications are greater than the amount of groundglass attenuation. No pneumothorax, pneumoper icardium or pneumomediastinum. No effusion. Heart is normal size with no RIGHT heart strain. Fluid-fi lled structure adjacent to the LEFT ventricle is probably a pericardial cyst or recess. Prominent mediastinal and hilar lymph nodes likely reactive. Hepatic steatosis. CT/CT angio chest PE protcl [id number] IMPRESSION: 1. Limited opacification of the pulmonary arteries but no embolism through por tions of the segmental branches. 2. Multifocal areas of consolidation and groundglass attenuation consistent wi th Covid 19. 3. Reactive lymphadenopathy in the mediastinum and hilum.
[2020-10-24 08:12] LABS: Procalcitonin 0.25 ng/mL (0-0.5)
[2020-10-24 08:13] LABS: Alanine Aminotransferase 175 U/L (0-41); Albumin Level 3.7 g/dL (3.5-5.2); Alkaline Phosphatase 208 IU/L (40-130); Anion Gap 15.3 (5-19); Aspartate Amino Transferase 159 U/L (0-40); Blood Urea Nitrogen 14 mg/dL (6-20); C Reactive Protein 101.2 mg/L (0.0-4.9); Calcium 8.2 mg/dL (8.5-10.5); Carbon Dioxide 28 mmol/L (22-29); Chloride 99 mmol/L (98-107); Globulin 2.6 g/dL (1.3-4.6); Glomerular Filtration Rate 105.5 mL/min (90-130); Glucose 107 mg/dL (65-115); Magnesium 2.1 mg/dL (1.7-2.3); Osmolality Calculated 287 mOsm/kg (285-295); Phosphorus 2.9 mg/dL (2.5-4.5); Potassium 4.3 mmol/L (3.5-5.1); Sodium 138 mmol/L (136-145); Total Bilirubin 0.3 mg/dL (0.15-1.2); Total Protein 6.3 g/dL (6.6-8.7)
[2020-10-24] MEDS: budesonide 0.5 mg/2 mL Neb INHALATION ×3 (08:52→19:55)
[2020-10-24] MEDS: dexamethasone 10 mg/mL INJ 6 MG IVP (08:59)
[2020-10-24] MEDS: cholecalciferol (vitamin D3) 1,000 unit Tablet 1000 UNIT PO (08:59)
[2020-10-24] MEDS: zinc gluconate 50 mg Tablet PO (08:59)
[2020-10-24] MEDS: famotidine 20 mg Tablet PO ×2 (09:00→17:20)
[2020-10-24] MEDS: ascorbic acid 500 mg Tablet PO ×2 (09:00→17:20)
[2020-10-24 09:04] LABS: Ferritin 5873 ng/mL (30-400)
--- NOTE | 2020-10-24 09:55 | PC.CHAP ---
Pastoral Care Encounter/Spiritual Assessment Type of Contact [] Declined excelsior machine tender visit [] Patient/Family/Request visit [] Outpatient visit [] Follow-up visit [] Physician referral [] Code/Alert [x] Routine visit [] Staff referral [] Actively dying [] Patient sleeping [] Family support [] [] Out of room [] Palliative care [] [] Receiving care in room [] Pre-surgical visit [] Trauma [] Long length of stay [] ICU visit [] Other: Relational/Emotional Strength [] Patient feels connected with others/family/visitors/staff [] Distress [] Loneliness/isolation [] Abandonment Spirituality of Patient [] Person of Lucy [] Attends Sabianist of their Lucy [] Believes in Prayer [] Reads Bible or Moravian materials [] There are Spiritual issues to be addressed 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 Interventions [x] Prayer [] Active listening [] Non-anxious presence [] Spiritual/emotional support [] Crisis/trauma care [] Spiritual counseling [] Bereavement support [] Provided bereavement packet [] Provided Bible/devotional materials [] Provided toy/stuffed animal, coloring book to patient or family member [] Provided Communion [] Anointing/[place] [] Salvation [x] Completed spiritual assessment [] Other: Impact on Illness or Injury [] Angry [] Fearful [] Anxious [] Often cries [] Exhaustion [] Unable to work [] Unable to attend presybeterian [] Unable to walk/stand [] Unable to read [] Unable to drive [] Unable to eat/drink [] Unable to sleep [] Unable to be with family [] Patient intubated [] Other: Summary Time spent with patient
--- NOTE | 2020-10-24 13:34 | PM.PN ---
Subjective Subjective: Interval history: Patient was seen this morning, he tells me overall he is doing well, no fevers overnight, is on 4 L, still having a significant cough Vitals/I&O/Wt Last Vital Signs Temp 98.5 F 10/24/20 12:00 Pulse 64 10/24/20 12:00 Resp 24 H 10/24/20 12:00 BP 148/85 10/24/20 12:00 Pulse Ox 90 10/24/20 12:00 10/23/20 10/24/20 10/24/20 22:59 06:59 14:59 Intake Total 100 / 100 750 / 850 Balance 100 / 100 750 / 850 Weight last 48 hrs Weight 110.223 kg Physical Exam Const: COMMON NORMALS: no acute distress and patient oriented x3 Resp: COMMON NORMALS: normal respiratory effort, No retractions, No use of accessory muscles and clear to auscultation bilaterally AUSCULTATION: clear to auscultation bilaterally Cardio: COMMON NORMALS: regular rate, regular rhythm, S1 normal heart sound present and S2 normal heart sound present RATE: regular rate RHYTHM: regular rhythm HEART SOUNDS: S1 normal heart sound present and S2 normal heart sound present GI: COMMON NORMALS: Normal to inspection, nondistended, normoactive bowel sounds present and Soft to palpation PALPATION: Yes Soft to palpation Extremity: COMMON NORMALS: no pedal edema Neuro: COMMON NORMALS: patient oriented x3 Psych: COMMON NORMALS: mental status grossly normal Data : 10/24/20 06:37 10/24/20 06:37 Micro: Microbiology 10/23/20 18:36 Blood Culture - Preliminary Blood SPECIMEN COLLECTED 10/23/20 18:36 Blood Culture - Preliminary Blood SPECIMEN COLLECTED A&P Assessment and plan (1) Pneumonia due to COVID-19 virus: -With hypoxia requiring 3-4 L -Lymphopenia -Thrombocytopenia -Transaminitis -Ferritin 5873, pro-Beny 0.25, CRP 101 -CT of the chest shows multifocal areas of consolidation and groundglass attenuation consistent with COVID-19, reactive lymphadenopathy in the mediastinum and hilum Plan: -Admit to general medical floors under COVID-19 precautions -Decadron 6 mg IV daily -Remdesivir day 2 of 5 -For now hold off on Tocilizumab -Broad-spectrum antibiotic therapy Rocephin and azithromycin -Blood cultures, sputum cultures, urine bacterial antigens -Vitamin C, zinc, vitamin D - aggressive pulmonary toilet, incentive spirometer, flutter valve, prone positioning -Lovenox for DVT prophylaxis -Full code Status: Acute (2) Hypoxia: Status: Acute (3) Lymphopenia associated with COVID-19: Status: Acute (4) Transaminitis: Status: Acute (5) Hyponatremia: Status: Acute (6) Rhabdomyolysis: Status: Acute Attestations Medical Necessity Statement*: Patient requires hospitalization due to COVID-19 pneumonia Coding Level of Care Code Acute Correctional Counselor for [facility] Diagnoses Pneumonia due to COVID-19 virus U07.1; J12.82 Hypoxia R09.02 Lymphopenia associated with COVID-19 U07.1; D72.810 Transaminitis R74.01 Hyponatremia E87.1 Rhabdomyolysis M62.82
[2020-10-24] MEDS: remdesivir 100 MG in sodium chloride 0.9% (100 ml) 100 ML IV (17:20)
--- NOTE | 2020-10-24 18:35 | PC.NURSE ---
Pt has rested well throughout the shift. Maintaining oxygen saturation 89-93% on 2-4 L. Intake and output adequate. Will continue to round and monitor vital signs.
[2020-10-24] MEDS: enoxaparin 40 mg/0.4 mL Syringe SUBCUT (22:22)
[2020-10-24] MEDS: azithromycin 500 MG in sodium chloride 0.9% 250 ML 250 MG IV (22:22)
[2020-10-25] VITALS (19 sets, daily range): BP systolic 107–137; BP diastolic 62–79; PULSE 51–80; RESP 15–23; TEMP 36.8–37.1; O2SAT 88–94
[2020-10-25] MEDS: cefTRIAXone 1,000 MG in sodium chloride 0.9% (plus) 50 ML 100 MG IV (00:18)
[2020-10-25] MEDS: albuterol 8 gm MDI 1 PUFF INHALATION ×3 (01:22→19:44)
[2020-10-25] MEDS: acetaminophen-codeine 120-12 mg/5 mL UDC 2.5 ML PO (01:27)
[2020-10-25 07:42] LABS: D Dimer 0.66 ug/mIFEU (0-0.59)
[2020-10-25 07:55] LABS: Alanine Aminotransferase 157 U/L (0-41); Albumin Level 3.5 g/dL (3.5-5.2); Alkaline Phosphatase 173 IU/L (40-130); Anion Gap 15.4 (5-19); Aspartate Amino Transferase 128 U/L (0-40); Blood Urea Nitrogen 16 mg/dL (6-20); C Reactive Protein 41.6 mg/L (0.0-4.9); Calcium 8.3 mg/dL (8.5-10.5); Carbon Dioxide 27 mmol/L (22-29); Chloride 101 mmol/L (98-107); Globulin 2.7 g/dL (1.3-4.6); Glomerular Filtration Rate 123.1 mL/min (90-130); Glucose 109 mg/dL (65-115); Magnesium 2.2 mg/dL (1.7-2.3); Osmolality Calculated 290 mOsm/kg (285-295); Phosphorus 2.7 mg/dL (2.5-4.5); Potassium 4.4 mmol/L (3.5-5.1); Sodium 139 mmol/L (136-145); Total Bilirubin 0.3 mg/dL (0.15-1.2); Total Protein 6.2 g/dL (6.6-8.7)
[2020-10-25 07:59] LABS: Procalcitonin 0.22 ng/mL (0-0.5)
[2020-10-25 08:26] LABS: Ferritin 5561 ng/mL (30-400)
[2020-10-25] MEDS: dexamethasone 10 mg/mL INJ 6 MG IVP (08:45)
[2020-10-25] MEDS: ascorbic acid 500 mg Tablet PO ×2 (08:46→18:21)
[2020-10-25] MEDS: famotidine 20 mg Tablet PO ×2 (08:46→18:21)
[2020-10-25] MEDS: cholecalciferol (vitamin D3) 1,000 unit Tablet 1000 UNIT PO (08:46)
[2020-10-25] MEDS: zinc gluconate 50 mg Tablet PO (08:46)
[2020-10-25] MEDS: budesonide 0.5 mg/2 mL Neb INHALATION ×2 (09:48→19:44)
--- NOTE | 2020-10-25 09:50 | PC.CHAP ---
Pastoral Care Encounter/Spiritual Assessment Type of Contact [] Declined visitor service assistant visit [] Patient/Family/Request visit [] Outpatient visit [] Follow-up visit [] Physician referral [] Code/Alert [x] Routine visit [] Staff referral [] Actively dying [] Patient sleeping [] Family support [] [] Out of room [] Palliative care [] [] Receiving care in room [] Pre-surgical visit [] Trauma [] Long length of stay [] ICU visit [x] Other: covid Relational/Emotional Strength [] Patient feels connected with others/family/visitors/staff [] Distress [] Loneliness/isolation [] Abandonment Spirituality of Patient [] Person of Lucy [] Attends Mosque of their Lucy [] Believes in Prayer [] Reads Bible or Religion materials [] There are Spiritual issues to be addressed 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 Resources 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 Interventions [x] Prayer [] Active listening [] Non-anxious presence [] Spiritual/emotional support [] Crisis/trauma care [] Spiritual counseling [] Bereavement support [] Provided bereavement packet [] Provided Bible/devotional materials [] Provided toy/stuffed animal, coloring book to patient or family member [] Provided Communion [] Anointing/[place] [] Salvation [x] Completed spiritual assessment [] Other: Impact on Illness or Injury [] Angry [] Fearful [] Anxious [] Often cries [] Exhaustion [] Unable to work [] Unable to attend temple [] Unable to walk/stand [] Unable to read [] Unable to drive [] Unable to eat/drink [] Unable to sleep [] Unable to be with family [] Patient intubated [] Other: Summary Time spent with patient
[2020-10-25 09:51] LABS: Hematocrit 45.7 % (42.0-52.0); Hemoglobin 14.4 g/dL (11.7-16.6); Lymphocytes # 1.1 10^3/uL (0.8-4.8); Lymphocytes % 18.8 %; Mean Corpuscular HGB Conc 31.5 g/dL (30.0-36.0); Mean Corpuscular Hemoglobin 26.7 pg (28.0-34.0); Mean Corpuscular Volume 84.8 fL (80-94); Mean Platelet Volume 10.3 fL (7.4-10.4); Monocytes # 0.4 10^3/uL (0.2-0.9); Monocytes % 6.3 %; Neutrophils # 4.15 10^3/uL (1.8-7.7); Neutrophils % 74.2 %; Nucleated Red Blood Cells % 0 %; Platelet Count 211 10^3/cmm (130-400); Red Blood Count 5.39 10^6/uL (4.1-5.3); Red Cell Distribution Width 13.8 % (12.1-15.1); White Blood Count 5.6 10^3/uL (4.0-10.0)
--- NOTE | 2020-10-25 14:13 | PM.PN ---
Subjective Subjective: Interval history: Patient is in good spirits this morning, no fevers, no chills, no nausea, no vomiting, he has been doing prone positioning Vitals/I&O/Wt Last Vital Signs Temp 98.2 F 10/25/20 11:57 Pulse 64 10/25/20 11:57 Resp 17 10/25/20 11:57 BP 112/68 10/25/20 11:57 Pulse Ox 92 10/25/20 11:57 10/24/20 10/25/20 10/25/20 22:59 06:59 14:59 Intake Total 580 / 580 300 / 880 Balance 580 / 580 300 / 880 Weight last 48 hrs Weight 110.223 kg Physical Exam Const: COMMON NORMALS: no acute distress and patient oriented x3 Resp: COMMON NORMALS: normal respiratory effort, No retractions, No use of accessory muscles and clear to auscultation bilaterally AUSCULTATION: clear to auscultation bilaterally Cardio: COMMON NORMALS: regular rate, regular rhythm, S1 normal heart sound present and S2 normal heart sound present RATE: regular rate RHYTHM: regular rhythm HEART SOUNDS: S1 normal heart sound present and S2 normal heart sound present GI: COMMON NORMALS: Normal to inspection, nondistended, normoactive bowel sounds present, Soft to palpation and non-tender PALPATION: Yes Soft to palpation Extremity: COMMON NORMALS: no pedal edema Neuro: COMMON NORMALS: patient oriented x3 Psych: COMMON NORMALS: mental status grossly normal Data : 10/25/20 06:02 10/25/20 06:03 Micro: Microbiology 10/23/20 18:36 Blood Culture - Preliminary Blood NEGATIVE TO DATE 10/23/20 18:36 Blood Culture - Preliminary Blood NEGATIVE TO DATE A&P Assessment and plan (1) Pneumonia due to COVID-19 virus: -With hypoxia requiring 3-4 L -Lymphopenia -Thrombocytopenia -Transaminitis -Ferritin 5873, pro-Beny 0.25, CRP 101 -CT of the chest shows multifocal areas of consolidation and groundglass attenuation consistent with COVID-19, reactive lymphadenopathy in the mediastinum and hilum Plan: -Admit to general medical floors under COVID-19 precautions -Decadron 6 mg IV daily -Remdesivir day 3 of 5 -For now hold off on Tocilizumab -Broad-spectrum antibiotic therapy Rocephin and azithromycin -Blood cultures, sputum cultures, urine bacterial antigens -Vitamin C, zinc, vitamin D - aggressive pulmonary toilet, incentive spirometer, flutter valve, prone positioning -Lovenox for DVT prophylaxis -Full code Plan for today continue Decadron and remdesivir antibiotics, clinically monitor Status: Acute (2) Hypoxia: Status: Acute (3) Lymphopenia associated with COVID-19: Status: Acute (4) Transaminitis: Status: Acute (5) Hyponatremia: Status: Acute (6) Rhabdomyolysis: Status: Acute Attestations Medical Necessity Statement*: Patient requires hospitalization due to COVID-19 pneumonia Coding Level of Care Code Acute [place] Miner for [facility] Diagnoses Pneumonia due to COVID-19 virus U07.1; J12.82 Hypoxia R09.02 Lymphopenia associated with COVID-19 U07.1; D72.810 Transaminitis R74.01 Hyponatremia E87.1 Rhabdomyolysis M62.82
[2020-10-25] MEDS: remdesivir 100 MG in sodium chloride 0.9% (100 ml) 100 ML IV (18:20)
[2020-10-25] MEDS: azithromycin 500 MG in sodium chloride 0.9% 250 ML 250 MG IV (23:00)
[2020-10-25] MEDS: enoxaparin 40 mg/0.4 mL Syringe SUBCUT (23:01)
[2020-10-26] VITALS (13 sets, daily range): BP systolic 117–139; BP diastolic 70–90; PULSE 52–93; RESP 16–25; TEMP 36.8–37.1; O2SAT 87–94
[2020-10-26] MEDS: cefTRIAXone 1,000 MG in sodium chloride 0.9% (plus) 50 ML 100 MG IV ×2 (00:06→22:47)
[2020-10-26 06:35] LABS: Basophils % 0.2 %; Hematocrit 43.2 % (42.0-52.0); Hemoglobin 13.6 g/dL (11.7-16.6); Lymphocytes # 0.9 10^3/uL (0.8-4.8); Lymphocytes % 16.1 %; Mean Corpuscular HGB Conc 31.5 g/dL (30.0-36.0); Mean Corpuscular Hemoglobin 26.9 pg (28.0-34.0); Mean Corpuscular Volume 85.4 fL (80-94); Mean Platelet Volume 9.9 fL (7.4-10.4); Monocytes # 0.4 10^3/uL (0.2-0.9); Monocytes % 7.9 %; Neutrophils % 74.7 %; Nucleated Red Blood Cells % 0 %; Platelet Count 230 10^3/cmm (130-400); Red Blood Count 5.06 10^6/uL (4.1-5.3); Red Cell Distribution Width 13.9 % (12.1-15.1); White Blood Count 5.4 10^3/uL (4.0-10.0)
[2020-10-26 06:47] LABS: D Dimer 0.47 ug/mIFEU (0-0.59)
--- NOTE | 2020-10-26 06:51 | PC.NURSE ---
Shift Summary Patient has rested well throughout the shift. No complaints of pain. Patient O2 turned up to 5L/NC at start of shift d/t O2 saturations being 87-88% on 4L. Sats came up to 90% and greater on 5L. Patient did c/o shortness of breath upon getting up to restroom once during the night. Refused 0000 blood pressure check. No other complaints.
[2020-10-26 07:02] LABS: Alanine Aminotransferase 202 U/L (0-41); Albumin Level 3.4 g/dL (3.5-5.2); Alkaline Phosphatase 149 IU/L (40-130); Aspartate Amino Transferase 156 U/L (0-40); Blood Urea Nitrogen 14 mg/dL (6-20); C Reactive Protein 17.3 mg/L (0.0-4.9); Calcium 8.1 mg/dL (8.5-10.5); Carbon Dioxide 26 mmol/L (22-29); Chloride 105 mmol/L (98-107); Globulin 2.2 g/dL (1.3-4.6); Glomerular Filtration Rate 123.1 mL/min (90-130); Glucose 98 mg/dL (65-115); Magnesium 2.1 mg/dL (1.7-2.3); Osmolality Calculated 296 mOsm/kg (285-295); Phosphorus 3.2 mg/dL (2.5-4.5); Sodium 143 mmol/L (136-145); Total Bilirubin 0.4 mg/dL (0.15-1.2); Total Protein 5.6 g/dL (6.6-8.7)
[2020-10-26 07:05] LABS: Procalcitonin 0.13 ng/mL (0-0.5)
[2020-10-26 07:52] LABS: Ferritin 4982 ng/mL (30-400)
[2020-10-26] MEDS: famotidine 20 mg Tablet PO ×2 (08:58→18:27)
[2020-10-26] MEDS: zinc gluconate 50 mg Tablet PO (08:58)
[2020-10-26] MEDS: dexamethasone 10 mg/mL INJ 6 MG IVP (08:58)
[2020-10-26] MEDS: cholecalciferol (vitamin D3) 1,000 unit Tablet 1000 UNIT PO (08:58)
[2020-10-26] MEDS: ascorbic acid 500 mg Tablet PO ×2 (08:58→18:27)
[2020-10-26 10:19] LABS: Creatine Phosphokinase 691 U/L (39-308)
[2020-10-26] MEDS: temazepam 15 mg Capsule PO (11:34)
--- NOTE | 2020-10-26 13:59 | P.PN_ITS ---
Subjective Subjective: Interval history: Patient was seen this morning, he had a difficult night, was not able to get any sleep due to his bed partner, he does tell me that in the middle the night he woke up with shortness of breath, and he was trouble catching his breath, was very anxious also, currently on 5 L, afebrile Vitals/I&O/Wt Last Vital Signs Temp 98.4 F 10/26/20 12:00 Pulse 93 10/26/20 12:00 Resp 16 10/26/20 12:00 BP 127/73 10/26/20 12:00 Pulse Ox 93 10/26/20 12:00 10/25/20 10/26/20 10/26/20 22:59 06:59 14:59 Intake Total 580 / 580 780 / 1360 Balance 580 / 580 780 / 1360 Physical Exam Const: COMMON NORMALS: no acute distress and patient oriented x3 Resp: COMMON NORMALS: normal respiratory effort, No retractions, No use of accessory muscles and clear to auscultation bilaterally AUSCULTATION: clear to auscultation bilaterally Cardio: COMMON NORMALS: regular rate, regular rhythm, S1 normal heart sound present and S2 normal heart sound present RATE: regular rate RHYTHM: regular rhythm HEART SOUNDS: S1 normal heart sound present and S2 normal heart sound present GI: COMMON NORMALS: Normal to inspection, nondistended, normoactive bowel sounds present, Soft to palpation and non-tender PALPATION: Yes Soft to palpation Extremity: COMMON NORMALS: no pedal edema Neuro: COMMON NORMALS: patient oriented x3 Psych: COMMON NORMALS: mental status grossly normal Data : 10/26/20 04:27 10/26/20 04:27 A&P Assessment and plan (1) Pneumonia due to COVID-19 virus: -With hypoxia requiring 5 L -Lymphopenia -Thrombocytopenia -Transaminitis -Ferritin 4982, pro-Beny 0.13, CRP 17.3, CK 691 -CT of the chest shows multifocal areas of consolidation and groundglass att enuation consistent with COVID-19, reactive lymphadenopathy in the mediastinum and hilum Plan: -Admit to Covid unit -Decadron 6 mg IV daily -Remdesivir day 4 of 5 -For now hold off on Tocilizumab -Broad-spectrum antibiotic therapy Rocephin and azithromycin -Blood cultures, sputum cultures, urine bacterial antigens -Vitamin C, zinc, vitamin D - aggressive pulmonary toilet, incentive spirometer, flutter valve, prone positioning -Lovenox for DVT prophylaxis -Full code Plan for today continue Decadron and remdesivir antibiotics, Klonopin for anxiety Status: Acute (2) Hypoxia: Status: Acute (3) Lymphopenia associated with COVID-19: Status: Acute (4) Transaminitis: Status: Acute (5) Hyponatremia: Status: Acute (6) Rhabdomyolysis: Status: Acute Attestations Medical Necessity Statement*: Patient course hospitalization due to COVID-19 pneumonia Coding Level of Care Code 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
[2020-10-26] MEDS: remdesivir 100 MG in sodium chloride 0.9% (100 ml) 100 ML IV (18:28)
[2020-10-26] MEDS: budesonide 0.5 mg/2 mL Neb INHALATION (20:20)
[2020-10-26] MEDS: albuterol 8 gm MDI 1 PUFF INHALATION (20:21)
[2020-10-26] MEDS: enoxaparin 40 mg/0.4 mL Syringe SUBCUT (21:40)
[2020-10-26] MEDS: azithromycin 500 MG in sodium chloride 0.9% 250 ML 250 MG IV (21:40)
[2020-10-26] MEDS: CLONazepam 0.5 mg Tablet 0.25 MG PO (21:41)
[2020-10-27] VITALS (10 sets, daily range): BP systolic 110–137; BP diastolic 63–85; PULSE 56–87; RESP 18–28; TEMP 36.6–37; O2SAT 90–94
--- NOTE | 2020-10-27 01:19 | PC.RESP ---
RT Shift Note Frequent safety and respiratory rounds continue. Orders completed as indicated. Patient monitored pre and post treatments throughout shift. Patient [Did.] tolerate treatments appropriately. Condition [DidNotChange]. Patient and/or manufacturer's service representative educated on respiratory treatment and medications. Patient and/or manufacturer's service representative [ResponseToTeaching]. Will continue to monitor patient progress.
[2020-10-27] MEDS: albuterol 8 gm MDI 1 PUFF INHALATION ×3 (04:00→20:15)
--- NOTE | 2020-10-27 04:43 | PC.RESP ---
RT Shift Note Frequent safety and respiratory rounds continue. Orders completed as indicated. Patient monitored pre and post treatments throughout shift. Patient [Did] tolerate treatments appropriately. Condition [Improved.]. Patient and/or eligibility services representative educated on respiratory treatment and medications. Patient and/or eligibility services representative [ResponseToTeaching]. Will continue to monitor patient progress.
--- NOTE | 2020-10-27 06:36 | PC.NURSE ---
Shift Summary Patient has rested well this shift, no complaints of pain. Patient did wake with episode of coughing early this AM and desaturated into the low 80s. Patient was not able to recover sats >90% on 5L/NC. Patient was increased to 12L high flow nasal cannula by RT with sats improving to 90% and greater.
[2020-10-27 07:32] LABS: Basophils % 0.2 %; Hematocrit 44.3 % (42.0-52.0); Hemoglobin 13.9 g/dL (11.7-16.6); Lymphocytes # 0.9 10^3/uL (0.8-4.8); Lymphocytes % 19.3 %; Mean Corpuscular HGB Conc 31.4 g/dL (30.0-36.0); Mean Corpuscular Hemoglobin 26.9 pg (28.0-34.0); Mean Corpuscular Volume 85.9 fL (80-94); Mean Platelet Volume 9.7 fL (7.4-10.4); Monocytes # 0.4 10^3/uL (0.2-0.9); Monocytes % 8.7 %; Neutrophils # 3.09 10^3/uL (1.8-7.7); Neutrophils % 69.3 %; Nucleated Red Blood Cells % 0 %; Platelet Count 237 10^3/cmm (130-400); Red Blood Count 5.16 10^6/uL (4.1-5.3); Red Cell Distribution Width 13.8 % (12.1-15.1); White Blood Count 4.5 10^3/uL (4.0-10.0)
[2020-10-27 08:00] LABS: D Dimer 0.47 ug/mIFEU (0-0.59)
[2020-10-27 08:11] LABS: Alanine Aminotransferase 216 U/L (0-41); Albumin Level 3.3 g/dL (3.5-5.2); Alkaline Phosphatase 151 IU/L (40-130); Anion Gap 17.3 (5-19); Aspartate Amino Transferase 125 U/L (0-40); Blood Urea Nitrogen 15 mg/dL (6-20); C Reactive Protein 16.2 mg/L (0.0-4.9); Calcium 8.3 mg/dL (8.5-10.5); Carbon Dioxide 28 mmol/L (22-29); Chloride 104 mmol/L (98-107); Globulin 2.5 g/dL (1.3-4.6); Glomerular Filtration Rate 123.1 mL/min (90-130); Glucose 86 mg/dL (65-115); Magnesium 2.1 mg/dL (1.7-2.3); Osmolality Calculated 300 mOsm/kg (285-295); Phosphorus 3.3 mg/dL (2.5-4.5); Potassium 4.3 mmol/L (3.5-5.1); Procalcitonin 0.11 ng/mL (0-0.5); Sodium 145 mmol/L (136-145); Total Bilirubin 0.5 mg/dL (0.15-1.2); Total Protein 5.8 g/dL (6.6-8.7)
[2020-10-27 08:28] LABS: Ferritin 4127 ng/mL (30-400)
[2020-10-27] MEDS: budesonide 0.5 mg/2 mL Neb INHALATION ×2 (08:49→20:13)
[2020-10-27] MEDS: dexamethasone 10 mg/mL INJ 6 MG IVP (09:42)
[2020-10-27] MEDS: zinc gluconate 50 mg Tablet PO (09:43)
[2020-10-27] MEDS: cholecalciferol (vitamin D3) 1,000 unit Tablet 1000 UNIT PO (09:44)
[2020-10-27] MEDS: famotidine 20 mg Tablet PO ×2 (09:44→17:03)
[2020-10-27] MEDS: ascorbic acid 500 mg Tablet PO ×2 (09:44→17:03)
--- NOTE | 2020-10-27 12:26 | PM.PN ---
Subjective Subjective: Interval history: Patient was seen this morning, he is complaining of increased shortness of breath with minimal exertion, such as getting up up to the side of the bed, he is up to 12 L, had a difficult night, no chest pain, no nausea, no vomiting, Vitals/I&O/Wt Last Vital Signs Temp 98.3 F 10/27/20 12:00 Pulse 76 10/27/20 12:00 Resp 22 H 10/27/20 12:00 BP 136/84 10/27/20 12:00 Pulse Ox 92 10/27/20 12:00 10/26/20 10/27/20 10/27/20 22:59 06:59 14:59 Intake Total 350 / 350 530 / 880 Balance 350 / 350 530 / 880 Physical Exam Const: COMMON NORMALS: no acute distress and patient oriented x3 Resp: COMMON NORMALS: normal respiratory effort, No retractions, No use of accessory muscles and clear to auscultation bilaterally AUSCULTATION: clear to auscultation bilaterally Cardio: COMMON NORMALS: regular rate, regular rhythm, S1 normal heart sound present and S2 normal heart sound present RATE: regular rate RHYTHM: regular rhythm HEART SOUNDS: S1 normal heart sound present and S2 normal heart sound present GI: COMMON NORMALS: Normal to inspection, nondistended, normoactive bowel sounds present, Soft to palpation and non-tender PALPATION: Yes Soft to palpation Extremity: COMMON NORMALS: no pedal edema Neuro: COMMON NORMALS: patient oriented x3 Psych: COMMON NORMALS: mental status grossly normal Data : 10/27/20 05:09 10/27/20 05:09 A&P Assessment and plan (1) Pneumonia due to COVID-19 virus: -With hypoxia requiring 12 L -Lymphopenia, resolved -Thrombocytopenia, resolved -Transaminitis -With rhabdomyolysis -Ferritin 4982, pro-Beny 0.11, CRP 16.2 -CT of the chest shows multifocal areas of consolidation and groundglass attenuation consistent with COVID-19, reactive lymphadenopathy in the mediastinum and hilum Plan: -Admit to Covid unit -Decadron 6 mg IV daily -Remdesivir day 5 of 5 -1 dose Actemra today -Broad-spectrum antibiotic therapy Rocephin and azithromycin -Blood cultures, sputum cultures, urine bacterial antigens -Vitamin C, zinc, vitamin D - aggressive pulmonary toilet, incentive spirometer, flutter valve, prone positioning -Lovenox for DVT prophylaxis -Full code Plan for today continue Decadron and remdesivir, antibiotics, 1 dose Actemra today Status: Acute (2) Hypoxia: Status: Acute (3) Lymphopenia associated with COVID-19: Status: Acute (4) Transaminitis: Status: Acute (5) Hyponatremia: Status: Acute (6) Rhabdomyolysis: Status: Acute Attestations Medical Necessity Statement*: Patient requires hospitalization due to COVID-19 pneumonia Coding Level of Care Code Acute Decision Science Analyst for [facility] Fwd Diagnoses Pneumonia due to COVID-19 virus U07.1; J12.82 Hypoxia R09.02 Lymphopenia associated with COVID-19 U07.1; D72.810 Transaminitis R74.01 Hyponatremia E87.1 Rhabdomyolysis M62.82
[2020-10-27 13:04] LABS: Creatine Phosphokinase 488 U/L (39-308)
[2020-10-27] MEDS: FUROsemide 10 mg/mL SDV 4mL 40 MG IVP (15:00)
[2020-10-27] MEDS: remdesivir 100 MG in sodium chloride 0.9% (100 ml) 100 ML IV (17:03)
[2020-10-27] MEDS: temazepam 15 mg Capsule PO (22:44)
[2020-10-27] MEDS: enoxaparin 40 mg/0.4 mL Syringe SUBCUT (22:46)
[2020-10-27] MEDS: azithromycin 500 MG in sodium chloride 0.9% 250 ML 250 MG IV (22:47)
[2020-10-28] VITALS (7 sets, daily range): BP systolic 109–131; BP diastolic 69–82; PULSE 52–66; RESP 16–22; TEMP 36.4–36.8; O2SAT 92–96
[2020-10-28] MEDS: cefTRIAXone 1,000 MG in sodium chloride 0.9% (plus) 50 ML 100 MG IV ×2 (00:10→23:54)
[2020-10-28 04:52] LABS: ABG PCO2 40.1 mmHg (35-45); ABG PH Result 7.46 (7.35-7.45); Arterial Blood Gas Hematocrit 48.7 % (42-52); Base Excess ABG 4.5 mmol/L (-2.0-2.0); Blood Gas Allen Test Pos; Blood Gas Sample Site Radial, right; Blood Gas Sample Type Arterial; HCO3 ABG 28.6 mmol/L (22-26); Oxygen Device NC; PO2 ABG 54.6 mmHg (80.0-100.0)
[2020-10-28 08:05] LABS: Basophils % 0.3 %; Hematocrit 47.9 % (42.0-52.0); Hemoglobin 15.1 g/dL (11.7-16.6); Lymphocytes # 0.9 10^3/uL (0.8-4.8); Lymphocytes % 25.7 %; Mean Corpuscular HGB Conc 31.5 g/dL (30.0-36.0); Mean Corpuscular Hemoglobin 26.5 pg (28.0-34.0); Mean Corpuscular Volume 84.2 fL (80-94); Mean Platelet Volume 9.7 fL (7.4-10.4); Monocytes # 0.4 10^3/uL (0.2-0.9); Monocytes % 10.6 %; Neutrophils # 2.06 10^3/uL (1.8-7.7); Neutrophils % 60.7 %; Nucleated Red Blood Cells % 0 %; Platelet Count 308 10^3/cmm (130-400); Red Blood Count 5.69 10^6/uL (4.1-5.3); Red Cell Distribution Width 13.6 % (12.1-15.1); White Blood Count 3.4 10^3/uL (4.0-10.0)
[2020-10-28 08:14] LABS: D Dimer 0.46 ug/mIFEU (0-0.59)
[2020-10-28 08:49] LABS: Alanine Aminotransferase 203 U/L (0-41); Albumin Level 3.9 g/dL (3.5-5.2); Alkaline Phosphatase 169 IU/L (40-130); Anion Gap 19.4 (5-19); Aspartate Amino Transferase 93 U/L (0-40); Blood Urea Nitrogen 18 mg/dL (6-20); C Reactive Protein 34.5 mg/L (0.0-4.9); Calcium 8.5 mg/dL (8.5-10.5); Carbon Dioxide 29 mmol/L (22-29); Chloride 99 mmol/L (98-107); Globulin 2.4 g/dL (1.3-4.6); Glomerular Filtration Rate 123.1 mL/min (90-130); Glucose 81 mg/dL (65-115); Magnesium 2.5 mg/dL (1.7-2.3); Osmolality Calculated 297 mOsm/kg (285-295); Phosphorus 4.1 mg/dL (2.5-4.5); Potassium 4.4 mmol/L (3.5-5.1); Sodium 143 mmol/L (136-145); Total Bilirubin 0.6 mg/dL (0.15-1.2); Total Protein 6.3 g/dL (6.6-8.7)
--- NOTE | 2020-10-28 08:49 | USCV_ITS ---
Cali Sofia Age: 45 Gender: M : 1975 Exam Date: 10/28/2020 16:29 Ordering Phys: Odilon Mathias MD Technologist: Tami Ag [place] [facility] [place]: Shortness of breath BP: 123 / 82 HR: 59 Rhythm: Sinus Technical Quality: Fair MEASUREMENTS (Male / Female) Normal Values 2D ECHO LV Diastolic Diameter PLAX 4.1 cm 4.2 - 5.9 / 3.9 - 5.3 cm LV Systolic Diameter PLAX 2.7 cm LV Chamber Size 3.9 cm IVS Diastolic Thickness 1.5 cm 0.6 - 1.0 / 0.6 - 0.9 cm IVS Systolic Thickness 1.7 cm LVPW Diastolic Thickness 1.4 cm 0.6 - 1.0 / 0.6 - 0.9 cm LVPW Systolic Thickness 1.7 cm RV Chamber Size 2.9 cm LVOT Diameter 2.1 cm LV Ejection Fraction 2D Teich 64.1 % LV Ejection Fraction MOD 2C 70.2 % LV Ejection Fraction 2C AL 70.7 % LA Diameter 2.9 cm LA Width 3.0 cm LA Height 4.5 cm RA Width 2.9 cm RA Height 4.7 cm Aorta at Sinotubular Diameter 2.5 cm M-MODE LV Diastolic Diameter MM 5.0 cm 4.2 - 5.9 / 3.9 - 5.3 cm LV Systolic Diameter MM 3.1 cm LV Ejection Fraction MM Teich 66.3 % IVS Diastolic Thickness MM 1.6 cm 0.6 - 1.0 / 0.6 - 0.9 cm IVS Systolic Thickness MM 1.8 cm LVPW Diastolic Thickness MM 1.1 cm 0.6 - 1.0 / 0.6 - 0.9 cm LVPW Systolic Thickness MM 1.4 cm RV Diastolic Diameter MM 1.9 cm Aortic Annulus Diameter 3.3 cm LA Ao Ratio MM 1.0 MV E Point Septal Separation 0.9 cm DOPPLER AV Peak Velocity 114.0 cm/s LVOT Peak Velocity 85.0 cm/s AV Area Cont Eq vti 2.9 cm squared AV Area Cont Eq pk 2.7 cm squared MV Area PHT 3.5 cm squared Mitral E to A Ratio 1.2 MV E' Velocity 36.0 cm/s Mitral E to MV E' Ratio 6.2 Mitral E to LV E' Lateral Ratio 4.9 Mitral E to LV E' Septal Ratio 8.3 TV Peak E Velocity 51.0 cm/s PV Peak Velocity 78.0 cm/s RV Acceleration Time 0.1 s RV Ejection Time 0.3 s RV AcT/ET 0.4 FINDINGS Left Ventricle Normal left ventricular size. LV systolic function is normal with EF of 55-60%. No regional wall motion abnormalities. Normal diastolic filling pattern. Right Ventricle The right ventricle is normal in size and function. Right Atrium The right atrium is normal in size. Left Atrium The left atrium is normal in size. Mitral Valve Structurally normal mitral valve without significant stenosis or prolapse. There is trace mitral regurgitation. Aortic Valve Structurally normal aortic valve without significant sclerosis or stenosis. There is no aortic regurgitation. Tricuspid Valve Structurally normal tricuspid valve without significant stenosis or regurgitation. Insufficient TR jet to calculate RVSP Pulmonic Valve Structurally normal pulmonic valve without significant stenosis. There is no pulmonic regurgitation. Pericardium Normal pericardium without effusion. Aorta Normal ascending aorta dimension. CONCLUSIONS LV systolic function is normal with EF of 55-60% Diastolic function is normal Trace mitral regurgitation No comparison studies are available Markos Car MD (Electronically Signed) Final Date: 29 October 2020 16:22 S
--- NOTE | 2020-10-28 09:10 | XRR_ITS ---
PROCEDURE INFORMATION: Exam: XR Chest Exam date and time: 10/28/2020 9:10 AM Age: 45 years old Clinical indication: Condition or disease; Lung condition and disease; Other: Covid TECHNIQUE: Imaging protocol: XR of the chest. Views: 1 view. COMPARISON: CR XR chest 1V portable [id number] 10/23/2020 2:08 PM FINDINGS: Lungs: Ill-defined linear opacities within the lungs. Pleural spaces: Unremarkable. No pleural effusion. No pneumothorax. Heart/Mediastinum: Unremarkable. No cardiomegaly. Bones/joints: Unremarkable. XR/XR chest 1V portable [id number] IMPRESSION: Ill-defined linear opacities within the lungs, which may reflect sequela of multifocal pneumonia.
[2020-10-28] MEDS: zinc gluconate 50 mg Tablet PO (09:13)
[2020-10-28] MEDS: ascorbic acid 500 mg Tablet PO ×2 (09:13→17:21)
[2020-10-28] MEDS: dexamethasone 10 mg/mL INJ 6 MG IVP (09:13)
[2020-10-28] MEDS: cholecalciferol (vitamin D3) 1,000 unit Tablet 1000 UNIT PO (09:13)
[2020-10-28] MEDS: famotidine 20 mg Tablet PO ×2 (09:15→17:21)
[2020-10-28 10:37] LABS: Ferritin 3444 ng/mL (30-400)
[2020-10-28 10:40] LABS: Creatine Phosphokinase 380 U/L (39-308)
[2020-10-28] MEDS: budesonide 0.5 mg/2 mL Neb INHALATION ×2 (11:13→21:54)
--- NOTE | 2020-10-28 11:13 | PM.PN ---
Subjective Subjective: Interval history: Patient was seen this morning, he tells me night, he feels short of exertion, he just does not feel well, has a persistent cough, he tells me that minimal movement, his oxygen levels were, currently on 15 L, afebrile overnight, normotensive Vitals/I&O/Wt Last Vital Signs Temp 98.2 F 10/28/20 07:20 Pulse 64 10/28/20 07:20 Resp 16 10/28/20 07:20 BP 123/82 10/28/20 07:20 Pulse Ox 93 10/28/20 07:20 10/27/20 10/28/20 10/28/20 22:59 06:59 14:59 Intake Total 200 / 200 780 / 980 Output Total 1825 / 1825 150 / 1975 Balance -1625 / -1625 630 / -995 Physical Exam Const: COMMON NORMALS: no acute distress and patient oriented x3 Resp: EFFORT & INSPECTION: Yes tachypneic, Yes Actively coughing and Yes retractions (Slight retractions intercostal, subcostal super sternal) AUSCULTATION: diminished lung sounds diffuse Cardio: COMMON NORMALS: regular rate, regular rhythm, S1 normal heart sound present and S2 normal heart sound present RATE: regular rate RHYTHM: regular rhythm HEART SOUNDS: S1 normal heart sound present and S2 normal heart sound present GI: COMMON NORMALS: Normal to inspection, nondistended, normoactive bowel sounds present, Soft to palpation and non-tender PALPATION: Yes Soft to palpation Extremity: COMMON NORMALS: no pedal edema Neuro: COMMON NORMALS: patient oriented x3 Psych: COMMON NORMALS: mental status grossly normal Data : 10/28/20 05:05 10/28/20 05:05 A&P Assessment and plan (1) Pneumonia due to COVID-19 virus: -With hypoxia requiring 15 L, persisting to heated high flow -This morning looks short of breath, has slight retractions, diminished lung sounds -Lymphopenia -Thrombocytopenia, resolved -Transaminitis -With rhabdomyolysis -Ferritin 344, pro-Beny 0.11, CRP 34.5 -CT of the chest shows multifocal areas of consolidation and groundglass attenuation consistent with COVID-19, reactive lymphadenopathy in the mediastinum and hilum Plan: -Admit to Covid unit -Decadron 6 mg IV daily -Remdesivir day 5 of 5 - second dose dose Actemra today -1 dose of Lasix today -Broad-spectrum antibiotic therapy Rocephin and azithromycin -Blood cultures, sputum cultures, urine bacterial antigens -Vitamin C, zinc, vitamin D - aggressive pulmonary toilet, incentive spirometer, flutter valve, prone positioning -Lovenox for DVT prophylaxis -Full code Plan for today continue Decadron, continue antibiotics, will give second dose of Actemra today, chest x-ray, diuresis, monitor respiratory status closely Status: Acute (2) Hypoxia: Status: Acute (3) Lymphopenia associated with COVID-19: Status: Acute (4) Transaminitis: Status: Acute (5) Hyponatremia: Status: Acute (6) Rhabdomyolysis: Status: Acute Attestations Medical Necessity Statement*: Patient requires hospitalization due to pneumonia secondary COVID-19 Coding Level of Care Code Acute 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
[2020-10-28] MEDS: albuterol 8 gm MDI 1 PUFF INHALATION (11:14)
[2020-10-28] MEDS: tocilizumab 800 MG in sodium chloride 0.9% (100 ml) 100 ML 100 MG IV (13:35)
[2020-10-28] MEDS: FUROsemide 10 mg/mL SDV 4mL 40 MG IVP (13:35)
[2020-10-28] MEDS: acetaminophen-codeine 120-12 mg/5 mL UDC 2.5 ML PO (17:21)
[2020-10-28] MEDS: ondansetron 2 mg/ML SDV 2 mL 4 MG IVP (21:28)
[2020-10-28] MEDS: temazepam 15 mg Capsule PO (21:28)
[2020-10-28] MEDS: enoxaparin 40 mg/0.4 mL Syringe SUBCUT (21:28)
[2020-10-28] MEDS: azithromycin 250 mg Tablet PO (23:16)
[2020-10-29] VITALS (9 sets, daily range): BP systolic 117–132; BP diastolic 74–83; PULSE 61–88; RESP 16–20; TEMP 36.6–37.1; O2SAT 86–93
--- NOTE | 2020-10-29 04:39 | PC.RESP ---
RT Shift Note Frequent safety and respiratory rounds continue. Orders completed as indicated. Patient monitored pre and post treatments throughout shift. Patient tolerated treatments appropriately. Condition did not change Patient educated on respiratory treatment and medications. Patient demonstrated. Will continue to monitor patient progress.
[2020-10-29 04:58] LABS: ABG PCO2 44.8 mmHg (35-45); ABG PH Result 7.45 (7.35-7.45); Arterial Blood Gas Hematocrit 47.8 % (42-52); Base Excess ABG 5.9 mmol/L (-2.0-2.0); Blood Gas Allen Test Pos; Blood Gas Sample Site Radial, right; Blood Gas Sample Type Arterial; HCO3 ABG 30.9 mmol/L (22-26); Oxygen Device NC; PO2 ABG 62.1 mmHg (80.0-100.0)
[2020-10-29 05:11] LABS: Basophils % 0.2 %; Hematocrit 45.8 % (42.0-52.0); Hemoglobin 15.1 g/dL (11.7-16.6); Lymphocytes # 0.8 10^3/uL (0.8-4.8); Lymphocytes % 17.2 %; Mean Corpuscular Hemoglobin 26.9 pg (28.0-34.0); Mean Corpuscular Volume 81.5 fL (80-94); Mean Platelet Volume 9.6 fL (7.4-10.4); Monocytes # 0.5 10^3/uL (0.2-0.9); Monocytes % 10.3 %; Neutrophils # 3.26 10^3/uL (1.8-7.7); Neutrophils % 70.4 %; Nucleated Red Blood Cells % 0 %; Platelet Count 323 10^3/cmm (130-400); Red Blood Count 5.62 10^6/uL (4.1-5.3); Red Cell Distribution Width 13.2 % (12.1-15.1); White Blood Count 4.6 10^3/uL (4.0-10.0)
[2020-10-29 05:26] LABS: D Dimer 0.44 ug/mIFEU (0-0.59)
[2020-10-29 05:33] LABS: Creatine Phosphokinase 216 U/L (39-308)
[2020-10-29 05:36] LABS: Procalcitonin 0.08 ng/mL (0-0.5)
[2020-10-29 05:40] LABS: Alanine Aminotransferase 143 U/L (0-41); Albumin Level 3.6 g/dL (3.5-5.2); Alkaline Phosphatase 139 IU/L (40-130); Anion Gap 19.1 (5-19); Aspartate Amino Transferase 59 U/L (0-40); Blood Urea Nitrogen 22 mg/dL (6-20); C Reactive Protein 15.9 mg/L (0.0-4.9); Calcium 8.7 mg/dL (8.5-10.5); Carbon Dioxide 28 mmol/L (22-29); Chloride 100 mmol/L (98-107); Globulin 2.8 g/dL (1.3-4.6); Glomerular Filtration Rate 123.1 mL/min (90-130); Glucose 88 mg/dL (65-115); Magnesium 2.4 mg/dL (1.7-2.3); Osmolality Calculated 299 mOsm/kg (285-295); Phosphorus 4.4 mg/dL (2.5-4.5); Potassium 4.1 mmol/L (3.5-5.1); Sodium 143 mmol/L (136-145); Total Bilirubin 0.4 mg/dL (0.15-1.2); Total Protein 6.4 g/dL (6.6-8.7)
[2020-10-29 06:03] LABS: Ferritin 2801 ng/mL (30-400)
--- NOTE | 2020-10-29 07:00 | XRR_ITS ---
PROCEDURE INFORMATION: Exam: XR Chest Exam date and time: 10/29/2020 7:00 AM Age: 45 years old Clinical indication: Shortness of breath; Patient HX: Covid; Additional info: SOB TECHNIQUE: Imaging protocol: XR of the chest. Views: 1 view. COMPARISON: CR XR chest 1V portable [id number] 10/28/2020 1:25 PM FINDINGS: Lungs: Multifocal bilateral pulmonary infiltrates which may be with pneumonia, increased. Pleural spaces: Unremarkable. No pleural effusion. No pneumothorax. Heart/Mediastinum: No cardiomegaly. Bones/joints: No acute fracture. XR/XR chest 1V portable [id number] IMPRESSION: Multifocal bilateral pulmonary infiltrates which may be with pneumonia, increased.
[2020-10-29] MEDS: FUROsemide 10 mg/mL SDV 4mL 40 MG IVP (08:27)
[2020-10-29] MEDS: dexamethasone 10 mg/mL INJ 6 MG IVP (08:28)
[2020-10-29] MEDS: zinc gluconate 50 mg Tablet PO (08:29)
[2020-10-29] MEDS: cholecalciferol (vitamin D3) 1,000 unit Tablet 1000 UNIT PO (08:29)
[2020-10-29] MEDS: ascorbic acid 500 mg Tablet PO ×2 (08:29→18:05)
[2020-10-29] MEDS: famotidine 20 mg Tablet PO ×2 (08:29→18:05)
[2020-10-29] MEDS: budesonide 0.5 mg/2 mL Neb INHALATION (09:05)
[2020-10-29] MEDS: albuterol 8 gm MDI 1 PUFF INHALATION (09:07)
--- NOTE | 2020-10-29 09:44 | PC.CHAP ---
Pastoral Care Encounter/Spiritual Assessment Type of Contact [] Declined chronograph operator visit [] Patient/Family/Request visit [] Outpatient visit [] Follow-up visit [] Physician referral [] Code/Alert [x] Routine visit [] Staff referral [] Actively dying [] Patient sleeping [] Family support [] [] Out of room [] Palliative care [] [] Receiving care in room [] Pre-surgical visit [] Trauma [] Long length of stay [] ICU visit [x] Other:covid Relational/Emotional Strength [] Patient feels connected with others/family/visitors/staff [] Distress [] Loneliness/isolation [] Abandonment Spirituality of Patient [] Person of Lucy [] Attends Mosque of their Lucy [] Believes in Prayer [] Reads Bible or Voodoo materials [] There are Spiritual issues to be addressed Transcripter Interventions [x] Prayer [] Active listening [] Non-anxious presence [] Spiritual/emotional support [] Crisis/trauma care [] Spiritual counseling [] Bereavement support [] Provided bereavement packet [] Provided Bible/devotional materials [] Provided toy/stuffed animal, coloring book to patient or family member [] Provided Communion [] Anointing/Manquin [] Salvation [x] Completed spiritual assessment [] Other: Impact on Illness or Injury [] Angry [] Fearful [] Anxious [] Often cries [] Exhaustion [] Unable to work [] Unable to attend uatsdin [] Unable to walk/stand [] Unable to read [] Unable to drive [] Unable to eat/drink [] Unable to sleep [] Unable to be with family [] Patient intubated [] Other: Summary Time spent with patient
--- NOTE | 2020-10-29 13:17 | P.PN_ITS ---
Subjective Subjective: Interval history: Patient was seen this morning, he is feeling a bit better, but still get short of breath with getting up to the side of bed, he is worried that we will let him go to the hospital too soon, I advised him that he is still quite ill from Covid infection, advised him that we will keep him as long as we need to to get him better from the Covid infection, he still on high amount of oxygen, and he still is quite short with minimal exertion, so he still has some ways to go, but rest assured we will not let him go out of the hospital before he is ready Vitals/I&O/Wt Last Vital Signs Temp 98.2 F 10/29/20 11:53 Pulse 62 10/29/20 11:53 Resp 16 10/29/20 11:53 BP 125/83 10/29/20 11:53 Pulse Ox 93 10/29/20 11:53 10/28/20 10/29/20 10/29/20 22:59 06:59 14:59 Intake Total 380 / 380 50 / 430 Output Total 1350 / 1350 150 / 1500 1250 / 1250 Balance -970 / -970 -100 / -1070 -1250 / -1250 Physical Exam Const: COMMON NORMALS: no acute distress and patient oriented x3 Resp: COMMON NORMALS: normal respiratory effort, No retractions, No use of accessory muscles and clear to auscultation bilaterally AUSCULTATION: clear to auscultation bilaterally Cardio: COMMON NORMALS: regular rate, regular rhythm, S1 normal heart sound present and S2 normal heart sound present RATE: regular rate RHYTHM: regular rhythm HEART SOUNDS: S1 normal heart sound present and S2 normal heart sound present GI: COMMON NORMALS: Normal to inspection, nondistended, normoactive bowel sounds present, Soft to palpation and non-tender PALPATION: Yes Soft to palpation Extremity: COMMON NORMALS: no pedal edema Neuro: COMMON NORMALS: patient oriented x3 Psych: COMMON NORMALS: mental status grossly normal Data : 10/29/20 03:55 10/29/20 03:55 Micro: Microbiology 10/28/20 11:20 Blood Culture - Preliminary Blood SPECIMEN COLLECTED 10/28/20 11:25 Blood Culture - Preliminary Blood SPECIMEN COLLECTED 10/23/20 18:36 Blood Culture - Final Blood NO GROWTH AFTER 5 DAYS 10/23/20 18:36 Blood Culture - Final Blood NO GROWTH AFTER 5 DAYS A&P Assessment and plan (1) Pneumonia due to COVID-19 virus: -With hypoxia requiring 15 L -This morning looks better, no retractions, improved lung sounds -Lymphopenia, resolved -Thrombocytopenia, resolved -Transaminitis, improving -With rhabdomyolysis, improving -Ferritin 2801, pro-Beny 0. 08, CRP 15.9 -CT of the chest shows multifocal areas of consolidation and groundglass attenuation consistent with COVID-19, reactive lymphadenopathy in the mediastinum and hilum -Chest x-ray showing multifocal bilateral pulmonary infiltrates which may be with pneumonia Plan: -Admit to Covid unit -Decadron 6 mg IV daily -Remdesivir day 5 of 5 -Actemra 10/27/2020, 10/28/2020 -1 dose of Lasix today -Today I will broaden his antibiotic coverage to vancomycin and Zosyn -Blood cultures, sputum cultures, urine bacterial antigens -Vitamin C, zinc, vitamin D - aggressive pulmonary toilet, incentive spirometer, flutter valve, prone positioning -Lovenox for DVT prophylaxis -Full code Plan for today continue Decadron, broaden antibiotic coverage to vancomycin, Zosyn, monitor for the next 24 hours, 1 dose of Lasix Status: Acute (2) Hypoxia: Status: Acute (3) Lymphopenia associated with COVID-19: Status: Acute (4) Transaminitis: Status: Acute (5) Hyponatremia: Status: Acute (6) Rhabdomyolysis: Status: Acute Attestations Medical Necessity Statement*: Patient requires hospitalization for pneumonia secondary COVID-19 Coding Level of Care Code Acute Medical Assisting Program Director for [facility] Diagnoses Pneumonia due to COVID-19 virus U07.1; J12.82 Hypoxia R09.02 Lymphopenia associated with COVID-19 U07.1; D72.810 Transaminitis R74.01 Hyponatremia E87.1 Rhabdomyolysis M62.82
[2020-10-29] MEDS: vancomycin 1,250 MG/250 ML PIGGYBACK 200 MG IV ×2 (14:18→21:21)
--- NOTE | 2020-10-29 17:37 | PC.RESP ---
RT Shift Note Frequent safety and respiratory rounds continue. Orders completed as indicated. Patient monitored pre and post treatments throughout shift. Patient tolerated treatments appropriately. Condition improved. Patient and/or factory representative educated on respiratory treatment and medications. Patient and/or factory representative verbalized understanding. Will continue to monitor patient progress.
[2020-10-29] MEDS: piperacillin-tazobactam 3.375 GM in sodium chloride 0.9% (plus) 50 ML IV (18:05)
[2020-10-29] MEDS: enoxaparin 40 mg/0.4 mL Syringe SUBCUT (21:21)
[2020-10-30] VITALS (8 sets, daily range): BP systolic 114–123; BP diastolic 74–75; PULSE 61–85; RESP 18–22; TEMP 36.4–36.8; O2SAT 86–92
[2020-10-30] MEDS: piperacillin-tazobactam 3.375 GM in sodium chloride 0.9% (plus) 50 ML IV (00:06)
[2020-10-30] MEDS: temazepam 15 mg Capsule PO (03:19)
--- NOTE | 2020-10-30 03:53 | PC.NURSE ---
anxious pt is very anxious and tired of laying here and just throwing iv antibiotics at me toro nilly tried to explain to the pt that the antibiotics are to treat the pneumonia that he has, pt verbalized understanding but still expressed that I feel that I can recoup just as well at home and I will be going home tomorrow. will continue to monitor and reassure pt.
--- NOTE | 2020-10-30 07:00 | XRR_ITS ---
PROCEDURE INFORMATION: Exam: XR Chest Exam date and time: 10/30/2020 7:00 AM Age: 45 years old Clinical indication: Other: Coughing; Patient HX: Follow up covid; Additional info: SOB TECHNIQUE: Imaging protocol: XR of the chest. Views: 1 view. COMPARISON: CR XR chest 1V portable [id number] 10/29/2020 6:40 AM FINDINGS: Lungs: Stable bilateral pulmonary opacities when allowance is made for differences in lung volumes. Pleural spaces: Unremarkable. No pleural effusion. No pneumothorax. Heart/Mediastinum: Unremarkable. No cardiomegaly. Bones/joints: Unremarkable. XR/XR chest 1V portable [id number] IMPRESSION: Stable bilateral pulmonary opacities when allowance is made for differences in lung volumes.
[2020-10-30 07:14] LABS: Lactate (Lactic Acid level) 1.3 mmol/L (0.5-2.2)
[2020-10-30 07:18] LABS: Basophils % 0.2 %; Eosinophils # 0.1 10^3/uL (0.0-0.8); Hematocrit 45.9 % (42.0-52.0); Hemoglobin 14.8 g/dL (11.7-16.6); Lymphocytes % 19.4 %; Mean Corpuscular HGB Conc 32.2 g/dL (30.0-36.0); Mean Corpuscular Hemoglobin 26.4 pg (28.0-34.0); Mean Platelet Volume 9.3 fL (7.4-10.4); Monocytes # 0.6 10^3/uL (0.2-0.9); Monocytes % 10.9 %; Neutrophils # 3.47 10^3/uL (1.8-7.7); Neutrophils % 67.1 %; Nucleated Red Blood Cells % 0 %; Platelet Count 334 10^3/cmm (130-400); Red Cell Distribution Width 13.2 % (12.1-15.1); White Blood Count 5.2 10^3/uL (4.0-10.0)
[2020-10-30 07:48] LABS: Vancomycin Trough 11.6 ug/mL (10-15)
[2020-10-30 07:55] LABS: Creatine Phosphokinase 129 U/L (39-308)
[2020-10-30 07:59] LABS: Alanine Aminotransferase 115 U/L (0-41); Albumin Level 3.6 g/dL (3.5-5.2); Alkaline Phosphatase 121 IU/L (40-130); Aspartate Amino Transferase 52 U/L (0-40); Blood Urea Nitrogen 22 mg/dL (6-20); C Reactive Protein 7.6 mg/L (0.0-4.9); Calcium 8.5 mg/dL (8.5-10.5); Carbon Dioxide 30 mmol/L (22-29); Chloride 98 mmol/L (98-107); Glomerular Filtration Rate 105.5 mL/min (90-130); Glucose 81 mg/dL (65-115); Magnesium 2.3 mg/dL (1.7-2.3); NT Pro B Type Natriuretic Pept 28 pg/mL (0-125); Osmolality Calculated 288 mOsm/kg (285-295); Phosphorus 3.8 mg/dL (2.5-4.5); Procalcitonin 0.05 ng/mL (0-0.5); Sodium 138 mmol/L (136-145); Total Bilirubin 0.6 mg/dL (0.15-1.2); Total Protein 5.6 g/dL (6.6-8.7)
[2020-10-30] MEDS: vancomycin 1,250 MG/250 ML PIGGYBACK 200 MG IV (08:25)
[2020-10-30] MEDS: cholecalciferol (vitamin D3) 1,000 unit Tablet 1000 UNIT PO (08:26)
[2020-10-30] MEDS: dexamethasone 10 mg/mL INJ 6 MG IVP (08:26)
[2020-10-30] MEDS: zinc gluconate 50 mg Tablet PO (08:27)
[2020-10-30] MEDS: famotidine 20 mg Tablet PO (08:27)
[2020-10-30] MEDS: ascorbic acid 500 mg Tablet PO (08:27)
--- NOTE | 2020-11-03 15:09 | PM.DCS ---
Discharge Providers Date of Admission: 10/23/20 16:57 Date of Discharge: October 30, 2020 Attending Provider at Admission: Odilon Mathias MD Attending Provider at Discharge: Bekah Hughes Primary Care Provider: Larisa Rangel DO Diagnoses at Discharge Discharge Diagnosis (1) Pneumonia due to COVID-19 virus: Status: Acute (2) Hypoxia: Status: Acute (3) Lymphopenia associated with COVID-19: Status: Acute (4) Transaminitis: Status: Acute (5) Hyponatremia: Status: Acute (6) Rhabdomyolysis: Status: Resolved Reason for Visit Reason for Visit: LOW O2 Hospital Course Hospital Course 45 year old male with no pertinent past medical history, 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 due to cough, shortness of breath, fatigue, malaise, nausea, vomiting. Patient tells me roughly 2 weeks ago on , one of his workers child tested positive for Covid, and he was also symptomatic, since then he started to develop nausea, vomiting, fatigue, malaise. His symptoms progressed such that this last Thursday he felt dehydrated so he went to his primary care physician's office, received IV hydration and tested positive for Covid. He says that his symptoms persisted after the IV hydration, but started developing high-grade fevers, nonproductive cough, and shortness of breath at rest with exertion. He has not received the Covid vaccines, no cardiovascular history, no history of smoking, no history asthma COPD, no recent travel, does work construction, has exposure to silica but wears appropriate equipment.Upon admission to the hospital patient was taken for CT angio which showed multifocal areas of consolidation and ground-glass attenuation consistent with COVID-19 with reactive lymphadenopathy in the mediastinum and hilum. Chest x-ray showed similar findings. No evidence of pulmonary embolism. Patient was started on a 5 day course of Remdesivir which she completed. Addition was given Decadron and Actemra. O2 requirements had improved gradually.Patient was wanting to be discharged home stating that he was able to return if any worsening respiratory distress.Patient requiring 5 L of O2 with exertion. This was arranged for patient at the time of discharge. Continued on Decadron to complete a 10 day course. Follow-up with primary care physician and Pulmonary Medicine was advised. Physical Exam Const: COMMON NORMALS: no acute distress and patient oriented x3 GENERAL APPEARANCE: cooperative and comfortable HENMT: COMMON NORMALS: normocephalic HEAD & SCALP: normocephalic Eye: COMMON NORMALS: Equal, round and reactive pupils present and EOMs intact bilaterally GENERAL EYE: appearance normal, both eyes and all related structures PUPIL: Yes Equal, round and reactive pupils present Neck/C-Spine: COMMON NORMALS: full ROM, no JVD and Thyroid normal THYROID: Thyroid normal Lymph: LYMPHATIC: no lymphadenopathy noted Resp: COMMON NORMALS: normal respiratory effort, No retractions, No use of accessory muscles and clear to auscultation bilaterally EFFORT & INSPECTION: Yes tachypneic, Yes Actively coughing and Yes retractions (Slight retractions intercostal, subcostal super sternal) AUSCULTATION: clear to auscultation bilaterally and diminished lung sounds diffuse Cardio: COMMON NORMALS: no JVD, regular rate, regular rhythm, S1 normal heart sound present, S2 normal heart sound present, No gallops present (Cardio), No clicks present (Cardio) and No murmurs present (Cardio) RATE: regular rate RHYTHM: regular rhythm HEART SOUNDS: S1 normal heart sound present and S2 normal heart sound present GI: COMMON NORMALS: Normal to inspection, nondistended, normoactive bowel sounds present, Soft to palpation, non-tender and No hepatosplenomegaly present PALPATION: Yes Soft to palpation and Yes No hepatosplenomegaly present Extremity: COMMON NORMALS: normal to inspection, full ROM and no pedal edema Neuro: COMMON NORMALS: patient oriented x3, CN's II-XII intact bilaterally, moves all extremities and no focal motor deficits Psych: COMMON NORMALS: mental status grossly normal, Normal thought process present and cooperative THOUGHT PROCESS: Normal thought process present Discharge Data Data Completed and Pending: Completed Studies During Hospitalization Category Date Time Status CT angio chest PE protcl 86526 Urge nt Cat Scan 10/24/20 08:00 Completed XR chest 1V yung ble [id number] Routine Exams 10/28/20 09:10 Completed XR chest 1V yung ble [id number] Routine Exams 10/29/20 07:00 Completed XR chest 1V yung ble [id number] Routine Exams 10/30/20 07:00 Completed XR chest 1V yung ble [id number] Stat Exams 10/23/20 13:54 Completed CV. echo complete * [id number] Routine Ultrasound 10/28/20 08:49 Completed Vitals: Last Vital Signs Temp 98.0 F 10/30/20 15:23 Pulse 77 10/30/20 15:23 Resp 18 10/30/20 16:00 BP 114/74 10/30/20 15:23 Pulse Ox 92 10/30/20 15:23 Discharge Plan Discharge Patient Disposition: Home Condition: Stable Prescriptions: New benzonatate 100 mg Capsule 100 mg PO TID PRN (Reason: Cough) Qty: 20 RF: 0 Decadron 6 mg tablet 6 mg PO DAILY Qty: 3 RF: 0 Ventolin HFA 90 mcg/actuation HFA aerosol inhaler 2 puff inhalation QID PRN (Reason: shortness of breath or wheezing) Qty: 6.7 RF: 0 Continued acetaminophen [Tylenol Extra Strength] 500 mg tablet 1,500 mg PO PRN RF: 0 ondansetron 4 mg tablet,disintegrating 4 mg PO Q6H PRN (Reason: nausea and vomiting) Qty: 12 RF: 0 Discontinued ibuprofen 200 mg Tablet 600 mg PO PRN RF: 0 Discharge Orders: Discharge Order (Routine); Ordered 10/30/20 Ordered By: Bekah Hughes Other Ambulatory Orders: Comprehensive Metabolic Panel (Routine) Timeframe: 1 Week Facility: [facility] - Location: Lab - Main Lab Ordered By: Bekah Hughes DME: Oxygen (Order) Location: None Selected Ordered By: Bekah Hughes Referrals: Altagracia Huertas MD [Physician] - 11/14/20 12:00 pm Discharge Diet: Advance as tolerated Discharge Activity: Increase activity as tolerated Patient Instructions: Viral Pneumonia (DC), Hyponatremia (DC), Opioid Safety Discharge Attestations Time Spent in Discharge Care*: greater than 30 min Specific Discharge Activities: educating patient, discussing with case specialist/social workers/dc planners, documenting/other paperwork and evaluating patient/reviewing data Status at Discharge: Cognitive status at discharge: cognitively intact, Functional status at discharge: independent ambulation Overall status at discharge: patient is progressing back to baseline Quality Metrics Clinical Quality Measures During this hospital stay, did patient experience: None Coding Level of Care Code Acute Chg FW DC note Diagnoses Pneumonia due to COVID-19 virus U07.1; J12.82 Hypoxia R09.02 Lymphopenia associated with COVID-19 U07.1; D72.810 Transaminitis R74.01 Hyponatremia E87.1 Rhabdomyolysis M62.82
--- NOTE | 2020-11-05 13:32 | PC.SOCIAL ---
discharge follow up call made to patient. taking new medications as prescribed. has follow up appointment with Dr. Huertas for 11-14-20. patient continues to use O2 at 5L. reports he is recovering but slower than he hoped.
== END 2020-10-30 17:30 | disposition home or self-care (01) | DRG 177 ==
LOC: ER 16:18 → MS 2A 18:09
PROVIDERS: Physician Assistant; Admitting Provider Family Medicine; Emergency Provider Family Medicine; PCP Family Medicine; Visit Provider Hospitalist
DX: U07.1 COVID-19 (principal); J12.82 Pneumonia due to coronavirus disease 2019; E87.1 Hypo-osmolality and hyponatremia; M62.82 Rhabdomyolysis; E86.0 Dehydration; R09.02 Hypoxemia; D72.810 Lymphocytopenia; R74.01 Elevation of levels of liver transaminase levels; R59.1 Generalized enlarged lymph nodes; Z82.49 Family history of ischemic heart disease and other diseases of the circulatory system
CPT/HCPCS: 36415; 36600; 71045; 71275; 80051; 80053; 80202; 82330; 82550; 82728; 82803; 82805; 83605; 83735; 83880; 84100; 84145; 85025; 85378; 86140; 87040; 87426; 93005; 93306; 94640; 94664; 94760; 96365; 96366; 96372; 96375; 99285; J0456; J0696; J1100; J1650; J1940; J2405; J2543; J3262; J3370; J3535; J7050; J7626; Q0144; Q9967

== ENCOUNTER → 2025-02-14 07:55 | Outpatient (BNVA) | payer OTHER, SELFPAY | PROVIDERS: PCP Family Medicine; Visit Provider Nurse Practitioner Family | DX: D22.5 Melanocytic nevi of trunk (principal); L57.8 Other skin changes due to chronic exposure to nonionizing radiation; L82.1 Other seborrheic keratosis; Z08 Encounter for follow-up examination after completed treatment for malignant neoplasm; Z85.828 Personal history of other malignant neoplasm of skin; L91.8 Other hypertrophic disorders of the skin; Z78.9 Other specified health status; R20.8 Other disturbances of skin sensation; H53.453 Other localized visual field defect, bilateral; L57.0 Actinic keratosis | CPT/HCPCS: 17000; 17110; 99203 ==